=== PATIENT | male | born 1950 | race Caucasian/White ===

== ENCOUNTER → 2017-10-19 11:56 | Outpatient (REF) | payer MEDICARE, BC, SELFPAY ==
[2017-10-19 19:28] LABS: ALT 43 U/L (12-78); Anion Gap 9.6 mmol/L (3-11); BUN 25 mg/dL (7-18); CO2 28.4 mmol/L (21.0-32.0); CREATININE 1.02 mg/dL (0.70-1.30); Calcium 8.9 mg/dL (8.5-10.1); Chloride 102 mmol/L (98-107); Glucose 87 mg/dL (70-100); LDL CHOLESTEROL 138 mg/dL (<100); Magnesium 1.9 mg/dL (1.8-2.4); Potassium 4.1 mmol/L (3.5-5.1); Sodium 140 mmol/L (136-145)
== END ==
LOC: NCHCN 11:56
PROVIDERS: PCP Internal Medicine; Visit Provider Internal Medicine
DX: I10 Essential (primary) hypertension (principal); G51.0 Bell's palsy; M21.611 Bunion of right foot; M20.40 Other hammer toe(s) (acquired), unspecified foot; R25.2 Cramp and spasm
CPT/HCPCS: 80048; 83721; 83735; 84460

== ENCOUNTER 2019-02-20 14:18 | Outpatient (REF) | payer MEDICARE, BC, SELFPAY ==
[2019-02-20 18:36] LABS: Anion Gap 10.2 mmol/L (3-11); BUN 25 mg/dL (7-18); CO2 30.8 mmol/L (21.0-32.0); CREATININE 1.15 mg/dL (0.70-1.30); Calcium 9.1 mg/dL (8.5-10.1); Chloride 103 mmol/L (98-107); Glucose 90 mg/dL (74-106); Magnesium 1.9 mg/dL (1.8-2.4); Potassium 3.7 mmol/L (3.5-5.1); Sodium 144 mmol/L (136-145)
== END 2019-02-20 14:38 ==
LOC: NCHCN 14:18
PROVIDERS: PCP Internal Medicine; Visit Provider Internal Medicine
DX: I10 Essential (primary) hypertension (principal); R25.2 Cramp and spasm; Z90.49 Acquired absence of other specified parts of digestive tract
CPT/HCPCS: 80048; 83735

== ENCOUNTER 2020-05-19 15:37 | Outpatient (REF) | payer MEDICARE, BC, SELFPAY ==
[2020-05-19 21:52] LABS: BUN 29 mg/dL (7-18); Chloride 105 mmol/L (98-107); Glucose 98 mg/dL (74-106); Sodium 141 mmol/L (136-145); Vitamin B12 859 pg/mL (193-986)
== END 2020-05-19 15:38 | disposition home or self-care (01) ==
LOC: NCHCN 15:37
PROVIDERS: PCP Internal Medicine; Visit Provider Internal Medicine
DX: I10 Essential (primary) hypertension (principal); G25.2 Other specified forms of tremor
CPT/HCPCS: 80048; 82607; 84443; 85025

== ENCOUNTER 2020-05-20 18:52 | Outpatient (REF) | payer MEDICARE, BC, SELFPAY ==
[2020-05-20 19:29] LABS: Abs Immature Grans 0.04 10^3/uL (0.0-0.06); Absolute Basophil Count 0.05 10^3/uL (0.0-0.2); Absolute Eosinophil Count 0.24 10^3/uL (0.0-0.7); Absolute Lymphocyte Count 1.11 10^3/uL (1.2-3.4); Absolute Monocyte Count 0.55 10^3/uL (0.1-0.8); Absolute Neutrophil Count 5.47 10^3/uL (1.2-6.7); Basophils % 0.7; Eosinophils % 3.2; HCT 46.4 % (40.0-50.0); HGB 15.3 g/dL (13.5-17.5); Immature Grans % 0.5; Lymphocytes % 14.9; MCH 28.7 pg (27.0-33.0); MCV 86.9 fL (80-95); MPV 11.9 fL (8.0-11.0); Monocytes % 7.4; Neutrophils % 73.3; Nucleated RBC 0 %; Platelet Count 216 10^3/uL (130-400); RBC 5.34 10^6/uL (4.36-5.78); RDW-SD 45.2 fL; WBC 7.46 10^3/uL (4.4-10.8)
== END 2020-05-20 18:53 | disposition home or self-care (01) ==
LOC: NCHCN 18:52
PROVIDERS: PCP Internal Medicine; Visit Provider Internal Medicine
DX: I10 Essential (primary) hypertension (principal); G25.2 Other specified forms of tremor
CPT/HCPCS: 85025

== ENCOUNTER 2020-11-02 14:46 | Outpatient (REF) | payer MEDICARE, BC, SELFPAY ==
[2020-11-04 17:18] LABS: COVID-19 RT-PCR UVMMC Result Negative (Negative)
== END 2020-11-02 14:47 | disposition home or self-care (01) ==
LOC: NCHCN 14:46
PROVIDERS: PCP Internal Medicine; Visit Provider Internal Medicine
DX: Z20.822 Contact with and (suspected) exposure to COVID-19 (principal)
CPT/HCPCS: U0003

== ENCOUNTER 2021-07-08 18:33 | Outpatient (REF) | payer MEDICARE, BC, SELFPAY ==
[2021-07-08 18:48] LABS: HCT 42.9 % (40.0-50.0); HGB 14.1 g/dL (13.5-17.5); MCH 27.9 pg (27.0-33.0); MCHC 32.9 % (32.0-36.0); MCV 85 fL (80-95); MPV 10.9 fL (8.0-11.0); Platelet Count 198 10^3/uL (130-400); RBC 5.05 10^6/uL (4.36-5.78); RDW 14.6 % (11.8-14.1); RDW-SD 44.9 fL; WBC 6.37 10^3/uL (4.4-10.8)
[2021-07-08 18:49] LABS: ESR 14 mm/hr (0-20)
[2021-07-08 19:54] LABS: ALT 23 U/L (16-63); AST 18 U/L (15-37); Alkaline Phosphatase 85 U/L (46-116); Anion Gap 8.2 mmol/L (3-11); BUN 25 mg/dL (7-18); Bilirubin, Total 0.8 mg/dL (0.2-1.0); CO2 28.8 mmol/L (21.0-32.0); CREATININE 1.1 mg/dL (0.70-1.30); Calcium 8.8 mg/dL (8.5-10.1); Chloride 101 mmol/L (98-107); Glucose 104 mg/dL (74-106); Potassium 3.5 mmol/L (3.5-5.1); Sodium 138 mmol/L (136-145); TSH 0.64 uIU/mL (0.36-3.74); Vitamin B12 651 pg/mL (193-986)
[2021-07-08 20:07] LABS: C-Reactive Protein 0.28 mg/dL (0.0-0.3)
== END 2021-07-08 18:34 | disposition home or self-care (01) ==
LOC: NCHCN 18:33
PROVIDERS: PCP Internal Medicine; Visit Provider Internal Medicine
DX: I10 Essential (primary) hypertension (principal); R41.89 Other symptoms and signs involving cognitive functions and awareness
CPT/HCPCS: 80053; 85027; 85652; 82607; 84443; 86140

== ENCOUNTER 2022-03-27 14:48 | Outpatient (REF) | payer MEDICARE, BC, SELFPAY ==
[2022-03-27 20:02] LABS: Anion Gap 9.5 mmol/L (3-11); BUN 28 mg/dL (7-18); CO2 27.5 mmol/L (21.0-32.0); CREATININE 1.1 mg/dL (0.70-1.30); Calcium 9.7 mg/dL (8.5-10.1); Calculated LDL 138 mg/dL (<100); Chloride 102 mmol/L (98-107); Cholesterol 208 mg/dL (<200); Estimated GFR 71.32 (mL/min/1.73m2); Glucose 110 mg/dL (74-106); HDL Cholesterol 55 mg/dL (40-60); Potassium 3.6 mmol/L (3.5-5.1); Sodium 139 mmol/L (136-145); Triglyceride 75 mg/dL (<150)
== END 2022-03-27 14:49 | disposition home or self-care (01) ==
LOC: NCHCN 14:48
PROVIDERS: PCP Internal Medicine; Visit Provider Internal Medicine
DX: I10 Essential (primary) hypertension (principal); R41.89 Other symptoms and signs involving cognitive functions and awareness
CPT/HCPCS: 80048; 80061

== ENCOUNTER 2023-04-25 13:45 | Outpatient (REF) | payer MEDICARE, BC, SELFPAY ==
[2023-04-25 20:29] LABS: Calculated LDL 146 mg/dL (<100); Cholesterol 219 mg/dL (<200); HDL Cholesterol 54 mg/dL (40-60); Triglyceride 95 mg/dL (<150)
== END 2023-04-25 13:46 | disposition home or self-care (01) ==
LOC: NCHCN 13:45
PROVIDERS: PCP Internal Medicine; Visit Provider Internal Medicine
DX: Z00.00 Encounter for general adult medical examination without abnormal findings (principal)
CPT/HCPCS: 80061

== ENCOUNTER 2024-01-09 13:14 | Outpatient (REF) | payer MEDICARE, BC, SELFPAY ==
--- OUTSIDE RECORDS SUMMARY | 2024-01-09 13:18 | XMS_ITS | Clinical Summary ---
Author Organization [facility] Address [address] [place] [address] Care Team Providers Care Winding Rack Operator Name Role Phone Delmar Diaz MD Primary Care Provider [phone] Allergies Active Allergy Reactions Criticality Noted Date Comments Lorazepam Shortness Of Breath 04/17/2016 Medications ALBUTEROL SULFATE (PROVENTIL INHL) Inhale as directed every 4 hours as needed. Active triamterene-hyd rochlorothiazid e (MAXZIDE) 37.5-25 mg per tablet Take 1 Tab by mouth daily. Active FLAXSEED OIL ORAL Take 1 Tab by mouth daily. Reported on 04/17/2016 Active acetaminophen (TYLENOL) 325 mg tablet Take 325 mg by mouth every 4 hours as needed. Active calcium carbonate (TUMS) 200 mg calcium (500 mg) Chew Take 1 Tab by mouth 4 times daily as needed. Active Phqz-Spcw-CKG#1 -V-Ahnj-Lbu-Bor (OSTEO BI-FLEX) 750-625-30 mg Tab Take by mouth daily. Reported on 04/17/2016 Active UNABLE TO FIND daily. Reported on 04/17/2016 Active omega-3 fatty acids (FISH OIL CONCENTRATE) 1,000 mg cap capsule Take 1,000 mg by mouth daily. Reported on 04/17/2016 Active KRILL OIL ORAL Take by mouth daily. Reported on 04/17/2016 Active aspirin chewable 81 mg tablet Take 81 mg by mouth every 48 hours. Reported on 04/17/2016 Active valACYclovir (VALTREX) 1 gram tablet Take 1,000 mg by mouth 2 times daily. Active GABAPENTIN ORAL Take 200 mg by mouth daily. Active losartan (COZAAR) 50 mg tablet Take 50 mg by mouth daily. Active gabapentin (NEURONTIN) 300 mg capsule Take 300 mg by mouth at bedtime. Active polyethylene glycol (GOLYTELY) 236-22.74-6.74 -5.86 gram suspension Patient to follow one time directions sent from Dr Rodríguez office. 1 Each 2 Active Additional Information Patient not taking.Reported on 06/15/2021 cephalexin (KEFLEX) 250 mg/5 mL suspension Take 2,000 mg by mouth as needed (before dental appt). Active Active Problems Patient Care Coordination No te Formatting of this note migh t be different from the original. Patient has given verbal permission to [facility] to speak with his spouse Anna Acevedo and son Quirino Acevedo on pt's behalf for medical care. Hongchamp Mcclellan 06/10/2021 18:29 Problem Noted Date Diagnosed Date Malignant tumor of colon (HCC-CMS) Colon polyp Allergic rhinitis Surgical History Surgery Date Site/Laterality Comments COLON SURGERY 09/21/2010 2010 Repair of colon perforation COLECTOMY 11/18/2009 11/29/09 Left Hemicolectomy KNEE SURGERY Left TONSILLECTOMY JOINT REPLACEMENT JOINT REPLACEMENT bilateral knees Medical History Medical History Date Comments Colon polyp Colon cancer (HCC-CMS) 2006 Allergic rhinitis Spasm of bronchus 12/07/10 Hypertension Lung disease Asthma Shallow breathing Shingles shingles on the brain 6 yrs ago Family History Medical History Relation Comments Colon Cancer Mother Breast Cancer Neg Hx Colon Polyps Neg Hx Endometrial Cancer Neg Hx Esophageal Cancer Neg Hx Ovarian Cancer Neg Hx Pancreatic Cancer Neg Hx Rectal Cancer Neg Hx Stomach Cancer Neg Hx Relation Status Comments Brother 1 Brother 2 Alive Father Mother Sister 1 Alive Sister 2 Alive Son Alive Social History Tobacco Use Types Packs/Day Years Used Date Smoking Tobacco: Never Smokeless Tobacco: Never Alcohol Use Standard Drinks/Week Comments No 0 (1 standard drink = 0.6 oz pur e alcohol) Interpersonal Safety Answer Date Record ed Physically Hurt Never 09/28/2019 Verbally Threaten Not on file 09/28/2019 Sex and Gender Information Value Date Recorded Sex Assigned at Not on file Legal Sex Male 18:16 EST Gender Identity Not on file Sexual Orientation Not on file Obstetrics History Last Filed Vital Signs Vital Sign Reading Time Taken Comments Blood Pressure 126/76 06/15/2021 1110 EDT Pulse 92 12/19/2013 1306 EDT Temperature 36.9 ??C (98.4 ??F) 06/15/2021 1108 EDT Respiratory Rate 13 06/15/2021 1110 EDT Oxygen Saturation 94% 06/15/2021 1110 EDT Inhaled Oxygen Concentration - - Weight 74.4 kg (164 lb) 06/15/2021 1004 EDT Height 177.8 cm (5' 10) 06/15/2021 1004 EDT Body Mass Index 23.53 06/15/2021 1004 EDT Plan of Treatment Health Maintenance Due Date Last Done Comments Hepatitis C Screen 1950 Fall Risk Screening 04/30/2018 04/30/2017 COVID-19 Vaccine ( - 2023-25 season) 2023 RSV Immunization ( o r 60+ Years) (1 - 1-dose 75+ series) 2024 Colonoscopy (Colon Cancer Screening) 06/15/202605/28, 04/03/2018 Procedures Procedure Name Priority Date/Time Associated Diagnosis Comments COLONOSCOPY PROCEDURE Routine 06/15/2021 10:50 EDT from Last 3 Months or Most Recently Relevant to Health Maintenance Results * COLONOSCOPY PROCEDURE (06/15/2021 10:50 EDT) Anatomical Region Laterality Modality Endoscopy Narrative 06/15/2021 10:50 EDT Procedure Performed Colonoscopy - cold biopsy polypectomy x 2 Indications for Exam Surveillance, ?? History of colon cancer. Procedure Technique A physical exam was performed. Informed consent was obtained from the patient after explaining all the risks (perforation, bleeding, missed findings, injury to nearby organs, infection and adverse effects to the medicine), benefits and alternatives to the procedure which the patient appeared to understand and so stated. ??The patient was connected to the monitoring devices and placed in the left lateral position. Continuous oxygen was provided with a nasal cannula and IV medicine administered thru an indwelling cannula. After adequate sedation was achieved, a digital exam was performed and the colonoscope introduced into the rectum and advanced under direct visualization to the cecum. The cecum was identified by visual landmarks. The endoscope was subsequently removed slowly while carefully examining the color, texture, anatomy, and integrity of the mucosa on withdrawal. Retroflexion was performed in the rectum: Yes. The patient was subsequently transferred to the recovery area in satisfactory condition. Rectal Exam:normal Estimated Blood Loss: None Complications None Medications none none Wiggins Bowel Prep Right Colon: 3 ? Transverse Colon: 3 ? Left Colon: 2 ?Total: 8 Findings 2 3-4 mm distal rectal polyps. ??cold bx polypectomy x 2 Diagnosis 2 3-4 mm distal rectal polyps. ??cold bx polypectomy x 2 Recommendations Follow biopsy results. Repeat colonoscopy in 5 years. This electronic signature authenticates all electronic and/or handwritten documentation, including orders, generated by the signer during the episode of care contained in this record. 06/15/2021 10:50:31 AM By Segun Rodríguez Segun Rodríguez MD GI PROCEDURE ORDERABLES Final Result from Last 3 Months or Most Recently Relevant to Health Maintenance Insurance [facility] [place] [id number] Care Teams Winding Rack Operator Relationship Specialty Start Date End Date Delmar Diaz MD [address] [place] [address] PCP - General 08/14/11
--- OUTSIDE RECORDS SUMMARY | 2024-01-09 13:18 | XMS_ITS | Encounter Summary ---
Author Organization [facility] Address [address] [place] [address] Care Team Providers Care Loan Funder Name Role Phone Delmar Diaz MD Primary Care Provider [phone] Encounter Details Date Type Department Care Team (Late st Contact Info) Description 01/23/2018 Orders Only [facility] General Surgery - [facility] [address] [place] [address] Daja Oviedo, [place] Social History Tobacco Use Types Packs/Day Years Used Date Smoking Tobacco: Never Smokeless Tobacco: Never Alcohol Use Standard Drinks/Week Comments No 0 (1 standard drink = 0.6 oz pur e alcohol) Sex and Gender Information Value Date Recorded Sex Assigned at Not on file Legal Sex Male 18:16 EST Gender Identity Not on file Sexual Orientation Not on file documented as of this encounter Functional Status * Because of a physical, mental, or emotional condition, does this person have difficulty doing errands alone such as visiting a doctor's office or shopping? Answer Date of Assessment Author No 04/30/2017 14:38 EST documented as of this encounter Mental Status * Because of a physical, mental, or emotional condition, does this person have serious difficulty concentrating, remembering, or making decisions? Answer Entry Date Author No 04/30/2017 14:38 EST documented in this encounter Ordered Prescriptions Prescription Sig Dispense Quantity Refills Last Filled Start Date End Date polyethylene glycol (GOLYTELY) 236-22.74-6.74 -5.86 gram suspension Take as directed prior to procedure 1 Bottle 01/23/2018 2 documented in this encounter Plan of Treatment Not on file documented as of this encounter Visit Diagnoses Not on filedocumented in this encounter Discontinued Medications Medication Sig Discontinue Reason Start Date End Da te polyethylene glycol (GOLYTELY) 236-22.74-6.74 -5.86 gram suspension Patient to follow directions given by Dr. Rodríguez's office 01/15/2015 01/23/2018 documented as of this encounter Care Teams Loan Funder Relationship Specialty Start Date End Date Delmar Diaz MD [address] [place] [address] PCP - General 08/14/11 documented as of this encounter
--- OUTSIDE RECORDS SUMMARY | 2024-01-09 13:18 | XMS_ITS | Encounter Summary ---
Author Organization [facility] Address [address] [place] [address] Care Team Providers Care Interface Analyst Name Role Phone Delmar Diaz MD Primary Care Provider [phone] Reason for Visit * Reason Onset Date Comments Colonoscopy 10/16/2014 Received letter. Wants to schedule colonoscopy but ? if his medicare would cover it. Encounter Details Date Type Department Care Team (Late st Contact Info) Description 10/16/2014 Telephone [facility] General Surgery - [facility] [address] [place] [address] Segun Tyler MD [address] [facility], [address] [place] [address] Colonoscopy (Received letter. Wants to schedule colonoscopy but ? if his medicare would cover it.) Social History Tobacco Use Types Packs/Day Years Used Date Smoking Tobacco: Never Alcohol Use Standard Drinks/Week Comments No 0 (1 standard drink = 0.6 oz pur e alcohol) Sex and Gender Information Value Date Recorded Sex Assigned at Not on file Legal Sex Male 18:16 EST Gender Identity Not on file Sexual Orientation Not on file documented as of this encounter Miscellaneous Notes * Telephone Encounter - Margret Mohan - 10/20/2014 0910 EDT Patient given colonoscopy appointment with: Dr. TYLER Date and Time: 01.27.15 @ 10:00 AM Arrival Time @ 3rd Floor Registration: 9:00 AM Informational Packet Given/Mailed 10.20.14 Pharmacy information confirmed and emailed to Nurse 10.20.14 documented in this encounter Plan of Treatment Not on file documented as of this encounter Visit Diagnoses Not on filedocumented in this encounter Care Teams Interface Analyst Relationship Specialty Start Date End Date Delmar Diaz MD [address] [place] [address] PCP - General 08/14/11 documented as of this encounter
--- OUTSIDE RECORDS SUMMARY | 2024-01-09 13:18 | XMS_ITS | Encounter Summary ---
Author Organization [facility] Address [address] [place] [address] Care Team Providers Care Supplier Quality Engineer Name Role Phone Delmar Diaz MD Primary Care Provider [phone] Reason for Visit * Reason Onset Date Comments Other 05/16/2021 Encounter Details Date Type Department Care Team (Late st Contact Info) Description 05/16/2021 Telephone [facility] General Surgery - [facility] [address] [place] [address] Segun Rodríguez MD [address] [place] [address], [address] [place] [address] Other Social History Tobacco Use Types Packs/Day Years [...] 04/30/2017 14:38 EST documented in this encounter Miscellaneous Notes * Telephone Encounter - Anders Crocker - 05/25/2021 1339 EDT Patient calling back as he has not heard yet from Angelina. Please call * Telephone Encounter - Anders Crocker - 05/16/2021 1456 EDT Patient Calling for Angelina, he would like a call back to discuss a Colonoscopy documented in this encounter Plan of Treatment Not on file documented as of this encounter Visit Diagnoses Not on filedocumented in this encounter Care Teams Supplier Quality Engineer Relationship Specialty Start Date End Date Delmar Diaz MD [address] [place] [address] PCP - General 08/14/11 documented as of this encounter
--- OUTSIDE RECORDS SUMMARY | 2024-01-09 13:18 | XMS_ITS | Encounter Summary ---
Author Organization [facility] Address [address] [place] [address] Care Team Providers Care Manager Financial Services Name Role Phone Delmar Diaz MD Primary Care Provider [phone] Reason for Visit * Reason Onset Date Comments Appointment Related 01/25/2015 Encounter Details Date Type Department Care Team (Late st Contact Info) Description 01/25/2015 Telephone [facility] General Surgery - [address] [address] Segun Rodríguez MD [address] [facility], [address] [place] [address] Appointment Related Social History Tobacco Use Types Packs/Day Years [...] encounter Miscellaneous Notes * Telephone Encounter - Esther Soto - 01/25/2015 1320 EST Called Wang Acevedo To remind them of their colonoscopy appointment with: on 01/27/2015 @ 10:00am. Please check in with the 3rd. Floor registration desk located at the [facility] @ 09:00am ( One hour prior to your exam) To ensure a successful exam, patient was reminded to: tree trimming supervisor you bowel prep- Per pt- He will be using the miralax prep Are you on Coumadin or Plavix (Asprin is ok- Patient must contact the prescribing MD to notify them and schedule a bridge) You must start your Clear Liquid Diet the day before your scheduled procedure for Breakfast, lunch and dinner. Nothing to eat or drink 2 hours before the procedure You Must have a ride to and from the Procedure. documented in this encounter Plan of Treatment Not on file documented as of this encounter Visit Diagnoses Not on filedocumented in this encounter Care Teams Manager Financial Services Relationship Specialty Start Date End Date Delmar Diaz MD [address] [place] [address] PCP - General 08/14/11 documented as of this encounter
--- OUTSIDE RECORDS SUMMARY | 2024-01-09 13:18 | XMS_ITS | Encounter Summary ---
Author Organization [facility] Address [address] [place] [address] Care Team Providers Care Gas Pump Attendant Name Role Phone Delmar Diaz MD Primary Care Provider [phone] Encounter Details Date Type Department Care Team (Late st Contact Info) Description 01/27/2015 9:00 EST - 01/27/2015 11:26 EST Hospital Encounter [facility] Endoscopy Outpatient [address] [place] [address] Segun Rodríguez MD [address] [facility], [facility] [address] [place] [address] Malignant neoplasm of colon, unspecified part of colon ([facility]-HCC) Discharge Disposition: Home or Self Care Social History Tobacco Use Types Packs/Day Years [...] on file documented as of this encounter Last Filed Vital Signs Vital Sign Reading Time Taken Comments Blood Pressure 127/92 01/27/2015 1059 EST Pulse - - Temperature 34.8 ??C (94.6 ??F) 01/27/2015 1048 EST Respiratory Rate 16 01/27/2015 1059 EST Oxygen Saturation 92% 01/27/2015 1059 EST Inhaled Oxygen Concentration - - Weight 81.2 kg (179 lb) 01/27/2015 0934 EST Height 177.8 cm (5' 10) 01/27/2015 0934 EST Body Mass Index 25.68 01/27/2015 0934 EST documented in this encounter Medications at Time of Discharge acetaminophen (TYLENOL) 325 mg tablet Take 325 mg by mouth every 4 hours as needed. ALBUTEROL SULFATE (PROVENTIL INHL) Inhale as directed every 4 hours as needed. aspirin chewable 81 mg tablet Take 81 mg by mouth every 48 hours. Reported on 04/17/2016 calcium carbonate (TUMS) 200 mg calcium (500 mg) Chew Take 1 Tab by mouth 4 times daily as needed. FLAXSEED OIL ORAL Take 1 Tab by mouth daily. Reported on 04/17/2016 Wmfx-Czia-NJI#1- W-Fbvt-Cjq-Bor (OSTEO BI-FLEX) 750-625-30 mg Tab Take by mouth daily. Reported on 04/17/2016 KRILL OIL ORAL Take by mouth daily. Reported on 04/17/2016 omega-3 fatty acids (FISH OIL CONCENTRATE) 1,000 mg cap capsule Take 1,000 mg by mouth daily. Reported on 04/17/2016 triamterene-hydr ochlorothiazide (MAXZIDE) 37.5-25 mg per tablet Take 1 Tab by mouth daily. UNABLE TO FIND daily. Reported on 04/17/2016 polyethylene glycol (GOLYTELY) 236-22.74-6.74 -5.86 gram suspension Patient to follow directions given by Dr. Rodríguez's office 1 Bottle 0 01/15/2015 8 documented as of this encounter Discharge Disposition Disposition Code Departure Means Destination Home or Self Care documented in this encounter H&P Notes * Segun Rodríguez MD - 01/27/2015 0952 EST Endoscopy Sedation for Procedure History & Physical Date: 01/27/2015 Time: 9:52 Location: [address] Planned Procedure: Colonoscopy Chief Complaint/Indications for Procedure: hx Colon Cancer History Previous Complication with Sedation and/or Anesthesia? No Allergies: No Known Allergies Current Medications: Current Outpatient Prescriptions Medication Sig Dispense Refill ??? acetaminophen (TYLENOL) 325 mg tablet Take 325 mg by mouth every 4 hours as needed. ??? ALBUTEROL SULFATE (PROVENTIL INHL) Inhale as directed every 4 hours as needed. ??? aspirin chewable 81 mg tablet Take 81 mg by mouth every 48 hours. ??? calcium carbonate (TUMS) 200 mg calcium (500 mg) Chew Take 1 Tab by mouth 4 times daily as needed. ??? FLAXSEED OIL ORAL Take 1 Tab by mouth daily. ??? Zbdj-Utmu-CGF#2-Y-Ajse-Jorge A-Bor (OSTEO BI-FLEX) 750-625-30 mg Tab Take by mouth daily. ??? KRILL OIL ORAL Take by mouth daily. ??? omega-3 fatty acids (FISH OIL CONCENTRATE) 1,000 mg cap capsule Take 1,000 mg by mouth daily. [place] Red ??? polyethylene glycol (GOLYTELY) 236-22.74-6.74 -5.86 gram suspension Patient to follow directions given by Dr. Rodríguez's office 1 Bottle 0 ??? triamterene-hydrochlorothiazide (MAXZIDE) 37.5-25 mg per tablet Take 1 Tab by mouth daily. ??? UNABLE TO FIND daily. Bee Pollen Current Facility-Administered Medications Medication Route Frequency ??? lactated ringers (LR) infusion intravenous CONTINUOUS Past Medical History: Past Medical History Diagnosis Date ??? Colon polyp ??? Colon cancer 2005 ??? Allergic rhinitis ??? Spasm of bronchus 12/07/10 ??? Hypertension Social History: Past Surgical History Procedure Laterality Date ??? Colon surgery 09/21/2010 2010 Repair of colon perforation ??? Colectomy 11/18/2009 11/29/09 Left Hemicolectomy ??? Knee surgery Left ??? Tonsillectomy History Substance Use Topics ??? Smoking status: Never Smoker ??? Smokeless tobacco: Never Used ??? Alcohol Use: No Family History: Family History Problem Relation Age of Onset ??? Colon Cancer Mother 30 ??? Breast Cancer Neg Hx ??? Colon Polyps Neg Hx ??? Endometrial Cancer Neg Hx ??? Esophageal Cancer Neg Hx ??? Ovarian Cancer Neg Hx ??? Pancreatic Cancer Neg Hx ??? Rectal Cancer Neg Hx ??? Stomach Cancer Neg Hx Review of Systems as pertinent: Physical Exam Vital Signs: BP 141/88 mmHg Temp(Src) 35.4 ??C (95.7 ??F) (Tympanic) Resp 16 Ht 177.8 cm (70) Wt 81.194 kg (179 lb) BMI 25.68 kg/m2 SpO2 96% Heart Examination: Cardiac Regularity: Regular Respiratory Examination: Respiratory Pattern: Regular Breath Sounds Right: Clear Breath Sounds Left: Clear Abdominal Examination: Soft, non-tender, bowel sounds normal, no masses, no organomegaly Additional physical exam related to the proposed procedure, patient activity, disease state and treatment as pertinent: Assessment Previous complications with sedation or anesthesia?: No Airway Concerns: None Anesthesia Classification: ASA 2 Plan: Proceed with sedation for procedure Fasting Time: Time of last liquid intake: 06 Date of Last Liquid Intake: 01/27/15 Time of last solid intake: 1999 Date of last solid intake: 01/25/15 Patient Appropriate Candidate for Planned Sedation?: Yes Segun Rodríguez MD 01/27/2015 9:52 documented in this encounter Plan of Treatment Not on file documented as of this encounter Procedures Procedure Name Priority Date/Time Associated Diagnosis Comments PROCEDURE REPORTS - SCANNED 01/28/2015 0:37 EST CEA Routine 01/27/2015 9:22 EST Malignant neoplasm of colon, unspecified part of colon (CMS-HCC) documented in this encounter Results * PROCEDURE REPORTS - SCANNED (01/28/2015 0:37 EST) 01/28/2015 0:37 EST us Scan 2 Back End Engineer PROCEDURE/MINOR SURGICAL OR DERABLES Final Result * CEA (01/27/2015 9:22 EST) CEA 2.2 ng/ml 01/27/2015 11:32 EST [facility] Comment: % Distribution of CEA (ng/ml) 0-2.5 in 98.2% of non-smokers and 87.3% of smokers 2.6-5.0 in 1.8% of non-smokers and 8.0% of smokers 5.1-10.1 in 4.7% of smokers Serum CEA concentration should not be interpreted as absolute evidence for the presence or absence of malignant disease. Assayed utilizing [employer] chemiluminescent technology. ??Values obtained by using different assay methods cannot be used interchangeably. Blood specimen (specimen) BLOOD SPECIMEN / Unknown 01/27/2015 9:22 EST 01/27/2015 9:50 EST us Segun Rodríguez MD CHEMISTRY & BLOOD GAS ORDERAB LES Final Result [facility] [address] [place] [address] documented in this encounter Visit Diagnoses Diagnosis Malignant neoplasm of colon, unspecified part of colon (HCC-CMS) documented in this encounter Administered Medications Inactive Administered Medications - up to 3 most recent administrations Medication Order MAR Action Action Date Dose Rate Site lactated ringers (LR) infusion at 75 mL/hr, intravenous, CONTINUOUS, Starting on Sun01/27/15 at 1000, Until Sun01/27/15 at 1327, Routine New Bag 01/27/2015 9:41 EST 30 mL/hr meperidine (PF) (DEMEROL) 100 mg/mL injection 25-200 mg 25-200 mg, intravenous, ONCE PRN, 1 dose, Starting on Sun01/27/15 at 0956, Until Sun01/27/15 at 1018, Other, sedation, Routine, Intraprocedure Given 01/27/2015 10:18 EST 75 mg midazolam (PF) (VERSED) 1 mg/mL injection 1-10 mg 1-10 mg, intravenous, ONCE PRN, 1 dose, Starting on Sun01/27/15 at 0956, Until Sun01/27/15 at 1019, Sedation, Routine, Intraprocedure Given 01/27/2015 10:19 EST 3 mg documented in this encounter Orders Medications Ordered That Cassius ht Not Have Been Administered Count Last Ordered Date First Ordered Date lactated ringers (LR) infusion 1 01/27/2015 Transfer Count Last Ordered Date First Orde red Date NOTIFY PPS OF DISCHARGE COMPLETE 1 01/28/20 15 documented in this encounter Care Teams Gas Pump Attendant Relationship Specialty Start Date End Date Delmar Diaz MD [address] [place] [id number] PCP - General 08/14/11 documented as of this encounter
--- OUTSIDE RECORDS SUMMARY | 2024-01-09 13:18 | XMS_ITS | Encounter Summary ---
Author Organization [facility] Address [address] [place] [address] Care Team Providers Care Textbook Associate Name Role Phone Delmar Diaz MD Primary Care Provider [phone] Encounter Details Date Type Department Care Team (Late st Contact Info) Description 04/17/2016 Phlebotomy Only [facility] [place] [address] [place] [address] Noc Engineer, Outpatient History of colon cancer; Malignant neoplasm of sigmoid colon (HCC-CMS) Social History Tobacco Use Types Packs/Day Years [...] on file documented as of this encounter Plan of Treatment Not on file documented as of this encounter Procedures Procedure Name Priority Date/Time Associated Diagnosis Comments CEA Routine 04/17/2016 16:28 EST History of colon cancer documented in this encounter Results * CEA (04/17/2016 16:28 EST) CEA 2.0 ng/ml 04/18/2016 11:37 EST [facility] Comment: % Distribution of CEA (ng/ml) 0-2.5 in 98.2% of non-smokers and 87.3% of smokers 2.6-5.0 in 1.8% of non-smokers and 8.0% of smokers 5.1-10.1 in 4.7% of smokers Serum CEA concentration should not be interpreted as absolute evidence for the presence or absence of malignant disease. Assayed utilizing [employer] ([employer]) chemiluminescent technology. ??Values obtained by using different assay methods cannot be used interchangeably. Blood specimen (specimen) BLOOD SPECIMEN / Unknown 04/17/2016 16:28 EST 04/17/2016 16:48 EST us Segun Rodríguez MD CHEMISTRY & BLOOD GAS ORDERAB LES Final Result [facility] [address] [place] [address] documented in this encounter Visit Diagnoses Diagnosis History of colon cancer Personal history of malignant neoplasm of large intestine Malignant neoplasm of sigmoid colon (HCC-CMS) Malignant neoplasm of sigmoid colon documented in this encounter Care Teams Textbook Associate Relationship Specialty Start Date End Date Delmar Diaz MD [address] [place] [address] PCP - General 08/14/11 documented as of this encounter
--- OUTSIDE RECORDS SUMMARY | 2024-01-09 13:18 | XMS_ITS | Encounter Summary ---
Author Organization [facility] Address [address] [place] [address] Care Team Providers Care Interior Design Coordinator Name Role Phone Delmar Diaz MD Primary Care Provider [phone] Encounter Details Date Type Department Care Team (Late st Contact Info) Description 10/21/2015 Orders Only [facility] General Surgery - [facility] [address] [place], [place] [id number] Segun Rodríguez MD [address] [facility], [address] [place] [address] History of colon cancer (Primary Dx) Social History Tobacco Use Types Packs/Day Years [...] on file documented as of this encounter Results * CEA (04/17/2016 16:28 EST) CEA 2.0 ng/ml 04/18/2016 11:37 EST [facility] Comment: % Distribution of CEA (ng/ml) 0-2.5 in 98.2% of non-smokers and 87.3% of smokers 2.6-5.0 in 1.8% of non-smokers and 8.0% of smokers 5.1-10.1 in 4.7% of smokers Serum CEA concentration should not be interpreted as absolute evidence for the presence or absence of malignant disease. Assayed utilizing [employer] ([employer] chemiluminescent technology. ??Values obtained by using different assay methods cannot be used interchangeably. Blood specimen (specimen) BLOOD SPECIMEN / Unknown 04/17/2016 16:28 EST 04/17/2016 16:48 EST us Segun Rodríguez MD CHEMISTRY & BLOOD GAS ORDERAB LES Final Result [facility] [address] [place] [address] documented in this encounter Visit Diagnoses Diagnosis History of colon cancer- Primary Personal history of malignant neoplasm of large intestine documented in this encounter Care Teams Interior Design Coordinator Relationship Specialty Start Date End Date Delmar Diaz MD [address] [place] [address] PCP - General 08/14/11 documented as of this encounter
--- OUTSIDE RECORDS SUMMARY | 2024-01-09 13:18 | XMS_ITS | Encounter Summary ---
Author Organization [facility] Address [address] [place] [address] Care Team Providers Care Manager Of Sustainability Name Role Phone Delmar Diaz MD Primary Care Provider [phone] Reason for Visit * Reason Comments Colon Cancer Encounter Details Date Type Department Care Team (Late st Contact Info) Description 12/11/2012 14:30 EDT Office Visit [facility] General Surgery - [facility] [address] [place], [place] [address] Pal Dennis MD [address] [place] [address] Colon cancer (CMS-HCC) (HCC-CMS) (Primary Dx) Social History Tobacco Use Types Packs/Day Years Used Date Smoking Tobacco: Never Alcohol Use Standard Drinks/Week Comments No 0 (1 standard drink = 0.6 oz pur e alcohol) Sex and Gender Information Value Date Recorded Sex Assigned at Not on file Legal Sex Male 18:16 EST Gender Identity Not on file Sexual Orientation Not on file documented as of this encounter Progress Notes * Pal Dennis - 12/12/2012 0621 EDT DIVISION OF GENERAL SURGERY PROGRESS / FOLLOWUP NOTE - 12/11/2012 PROBLEM: History of colon cancer, history of ventral hernia. SUBJECTIVE: Mr Acevedo is now 3 years after his colectomy. He is doing very well. His appetite is good. He has had no abdominal pain, bleeding or change in bowel habits. He had a colonoscopy last December and we went over the results. MEDICAL HISTORY: Generally unremarkable. He and his had appropriate questions about the ventral hernia, which they really would like to manage expectantly. He has had no pain or obstructive symptoms. OBJECTIVE: He looks well. The sclerae are nonicteric. Heart exam reveals a regular rate and rhythm.The abdomen is benign with a large, readily reducible ventral hernia. The skin is completely intact. His serial CEAs were reviewed. ASSESSMENT: 1. Asymptomatic ventral hernia. I completely agree with expectant management. We had a jewel discussion about the nature of repair and outcomes. 2. Three years out without evidence of recurrence. PLAN: 1. We will check a CEA. If this is okay he would not need to necessarily see me for another year inthe absence of new symptoms. 2. We will continue expectant management of the ventral hernia. Pal Dennis MD, FACS 02 35 PM - Pal Dennis MD, FACS cn Dictation ID: [id number] * Pal Dennis - 12/11/2012 1429 EDT This office note has been dictated documented in this encounter Plan of Treatment Not on file documented as of this encounter Results * CEA (12/11/2012 14:43 EDT) CEA 2.2 ng/ml [facility] Comment: % Distribution of CEA (ng/ml) 0-2.5 in 98.2% of non-smokers and 87.3% of smokers 2.6-5.0 in 1.8% of non-smokers and 8.0% of smokers 5.1-10.1 in 4.7% of smokers Serum CEA concentration should not be interpreted as absolute evidence for the presence or absence of malignant disease. Assayed utilizing [employer] ([employer]) chemiluminescent technology. ??Values obtained by using different assay methods cannot be used interchangeably. Blood specimen (specimen) 12/11/2012 14:43 EDT 12/11/2012 14:57 EDT Pal Dennis MD CHEMISTRY & BLOOD GAS ORDERABLES Final Result [facility] [address] [place] [address] documented in this encounter Visit Diagnoses Diagnosis Colon cancer (HCC-CMS)- Primary Malignant neoplasm of colon, unspecified site documented in this encounter Care Teams Manager Of Sustainability Relationship Specialty Start Date End Date Delmar Diaz MD [address] [place] [address] PCP - General 08/14/11 documented as of this encounter
--- OUTSIDE RECORDS SUMMARY | 2024-01-09 13:18 | XMS_ITS | Encounter Summary ---
Author Organization [facility] Address [address] [place] [address] Care Team Providers Care Crosscutter Rolled Glass Name Role Phone Delmar Diaz MD Primary Care Provider Reason for Visit * Reason Onset Date Comments Results 04/12/2017 Returning Call 04/12/2017 Encounter Details Date Type Department Care Team (Late st Contact Info) Description 04/12/2017 Telephone [facility] General Surgery - [facility] [address] [place], [place] [id number] Segun Rodríguez MD [address] [facility], [address] [place] [address] Results; Returning Call Social History Tobacco Use Types Packs/Day Years [...] encounter Miscellaneous Notes * Telephone Encounter - Alva Deluna RN - 04/12/2017 3356 EST Read Wang's last CEA to him. Confirmed that he needed another one drawn for his upcoming appointment. Order placed and signed. * Telephone Encounter - AlberAngela - 04/12/2017 1433 EST Returning call * Telephone Encounter - AlberAngela Juliet - 04/12/2017 1412 EST Had CEA last time here- asking for results, and if he needs another one again. documented in this encounter Plan of Treatment Not on file documented as of this encounter Results * CEA (04/30/2017 13:58 EST) CEA 2.0 ng/ml 05/01/2017 10:10 EST [facility] Comment: % Distribution of CEA (ng/ml) 0-2.5 in 98.2% of non-smokers and 87.3% of smokers 2.6-5.0 in 1.8% of non-smokers and 8.0% of smokers 5.1-10.1 in 4.7% of smokers Serum CEA concentration should not be interpreted as absolute evidence for the presence or absence of malignant disease. Assayed utilizing [employer] ([employer]) chemiluminescent technology. ??Values obtained by using different assay methods cannot be used interchangeably. Blood specimen (specimen) BLOOD SPECIMEN / Unknown 04/30/2017 13:58 EST 04/30/2017 14:37 EST us Segun Rodríguez MD CHEMISTRY & BLOOD GAS ORDERAB LES Final Result [facility] [address] [place] [address] documented in this encounter Visit Diagnoses Diagnosis Malignant neoplasm of colon, unspecified part of colon (HCC-CMS)- Primary documented in this encounter Care Teams Crosscutter Rolled Glass Relationship Specialty Start Date End Date Delmar Diaz MD [address] [place] [address] PCP - General 08/14/11 documented as of this encounter
--- OUTSIDE RECORDS SUMMARY | 2024-01-09 13:18 | XMS_ITS | Encounter Summary ---
Author Organization [facility] Address [address] [place] [address] Care Team Providers Care Sales Promoter Name Role Phone Delmar Diaz MD Primary Care Provider [phone] Reason for Visit * Reason Comments Follow-up 1 yr f/u colon ca Encounter Details Date Type Department Care Team (Late st Contact Info) Description 04/30/2017 14:45 EST Office Visit [facility] General Surgery - [facility] [address] [place], [place] [phone] Segun Rodríguez MD [address] [facility], [address] [place] [address] Malignant neoplasm of sigmoid colon (HCC-CMS) (Primary Dx) Discharge Disposition: Auto Discharge Social History Tobacco Use Types Packs/Day Years [...] 04/30/2017 14:38 EST documented in this encounter Discharge Diagnoses Diagnosis C18.7 Malignant neoplasm of sigmoid colon-C18.7[ICD-10-CM] documented in this encounter Discharge Disposition Disposition Code Departure Means Destination Auto Discharge documented in this encounter Progress Notes * Segun Rodríguez MD - 04/30/2017 1445 EST This office note has been dictated. 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 His surgery was in 2011. Apparently, it was complicatedby an anastomotic leak and a cutaneous fistula, which healed on its own. The patient has been without any evidence of disease since 2011. He has not been followed with CAT scans. He currently has good function and an asymptomatic ventral hernia. 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 PHYSICAL EXAMINATION: Constitutional examination is normal except for left facial droop. HEENT examis unremarkable. Abdomen is benign except for very large ventral hernia, no masses. No signs of anycutaneous fistula. IMPRESSION: Doing well, no signs of recurrence. Carcinoembryonic antigen drawn today. RECOMMENDATION: Colonoscopy 1 year. Segun Rodríguez MD, FACS 03 01 PM - Segun Rodríguez MD, FACS en Dictation ID: [id number] cc: Delmar Diaz MD, [facility] [address], [place] [address] documented in this encounter Plan of Treatment Not on file documented as of this encounter Visit Diagnoses Diagnosis Malignant neoplasm of sigmoid colon (HCC-CMS)- Primary Malignant neoplasm of sigmoid colon documented in this encounter Care Teams Sales Promoter Relationship Specialty Start Date End Date Delmar Diaz MD [address] [place] [address] PCP - General 08/14/11 documented as of this encounter
--- OUTSIDE RECORDS SUMMARY | 2024-01-09 13:18 | XMS_ITS | Encounter Summary ---
Author Organization [facility] Address [address] [place] [address] Care Team Providers Care Board Finisher Name Role Phone Delmar Diaz MD Primary Care Provider [phone] Encounter Details Date Type Department Care Team (Latest Contact Info) Description 06/15/2021 Travel Social History Tobacco Use Types Packs/Day Years [...] on file Sexual Orientation Not on file COVID-19 Exposure Response Date Recorded In the last 10 days, have yo u been in contact with someone who was confirmed or suspected to have Coronavirus/COVID-19? No / Unsure 06/15/2021 10:02 EDT documented as of this encounter Functional Status [...] 04/30/2017 14:38 EST documented in this encounter Plan of Treatment Not on file documented as of this encounter Visit Diagnoses Not on filedocumented in this encounter Care Teams Board Finisher Relationship Specialty Start Date End Date Delmar Diaz MD [address] [place] [address] PCP - General 08/14/11 documented as of this encounter
--- OUTSIDE RECORDS SUMMARY | 2024-01-09 13:18 | XMS_ITS | Encounter Summary ---
Author Organization [facility] Address [address] [place] [address] Care Team Providers Care Print Shop Assistant Name Role Phone Delmar Diaz MD Primary Care Provider [phone] Reason for Visit * Reason Comments Follow-up f/u Colon Ca Encounter Details Date Type Department Care Team (Late st Contact Info) Description 04/17/2016 15:30 EST Office Visit [facility] General Surgery - [address] [address] Segun Rodríguez MD [address] [facility], [address] [place] [address] Malignant neoplasm of sigmoid colon [...] on file documented as of this encounter Discharge Diagnoses Diagnosis C18.7 Malignant neoplasm of sigmoid colon-C18.7[ICD-10-CM] documented in this encounter Discharge Disposition Disposition Code Departure Means Destination Auto Discharge documented in this encounter Progress Notes * Segun Rodríguez MD - 04/17/2016 1530 EST S/p colectomy by Dr Zepeda for colon ca 2011 Followed by Jeannie Last colo 2014 No CTs CEAs normal Recently admitted to [facility] for herpes encephalitis Recovering well PE Slight L facial droop Lungs clear Cor RRR abd benign No LN or skin lesions Ventral hernia A/p check CEA F/u 1 yr with CEA [place] 2018 documented in this encounter Plan of Treatment Not on file documented as of this encounter Visit Diagnoses Diagnosis Malignant neoplasm of sigmoid colon (HCC-CMS)- Primary Malignant neoplasm of sigmoid colon documented in this encounter Historical Medications * This list may reflect changes made after this encounter. gabapentin (NEURONTIN) 300 mg capsule Take 300 mg by mouth at bedtime. losartan (COZAAR) 50 mg tablet Take 50 mg by mouth daily. GABAPENTIN ORAL Take 200 mg by mouth daily. valACYclovir (VALTREX) 1 gram tablet Take 1,000 mg by mouth 2 times daily. added in this encounter Orders Lab Orders Without Results Count Last Ordered D ate First Ordered Date CEA 1 04/17/2016 documented in this encounter Care Teams Print Shop Assistant Relationship Specialty Start Date End Date Delmar Diaz MD [address] [place] [address] PCP - General 08/14/11 documented as of this encounter
--- OUTSIDE RECORDS SUMMARY | 2024-01-09 13:18 | XMS_ITS | Referral Summary ---
Author Organization [facility] Address [address] [place] [address] Care Team Providers Care Manager Budget Name Role Phone Delmar Diaz MD Primary Care Provider [phone] Allergies Active Allergy Reactions Criticality Noted Date [...] mouth 4 times daily as needed. Active Thch-Itza-PQK#1 -O-Ttml-Yoq-Bor (OSTEO BI-FLEX) 750-625-30 mg Tab Take by [...] original. Patient has given verbal permission to [facility] to speak with his spouse Anna Acevedo and son Quirino Acevedo on pt's behalf for medical care. Aniya Mcclellan 06/10/2021 18:29 Problem Noted Date Diagnosed Date Malignant tumor of colon (HCC-CMS) Colon polyp Allergic rhinitis Social History Tobacco Use Types Packs/Day Years [...] on file Sexual Orientation Not on file Last Filed Vital Signs Vital Sign Reading [...] Body Mass Index 23.53 06/15/2021 1004 EDT Functional Status * Because of a physical, mental, or emotional condition, does this person have difficulty doing errands alone such as visiting a doctor's office or shopping? Answer Date of Assessment Author No 04/30/2017 14:38 EST Mental Status * Because of a physical, mental, or emotional condition, does this person have serious difficulty concentrating, remembering, or making decisions? Answer Entry Date Author No 04/30/2017 14:38 EST Plan of Treatment Not on file Procedures Procedure Name Priority Date/Time Associated Diagnosis [...] Loss: None Complications None Medications none none [place] Bowel Prep Right Colon: 3 ? Transverse [...] record. 06/15/2021 10:50:31 AM By Segun Rodríguez us Segun Rodríguez MD GI PROCEDURE ORDERABLES Final Result from Last 3 Months or Most Recently Relevant to Health Maintenance Insurance [facility] [place] Care Teams Manager Budget Relationship Specialty Start Date End Date Delmar Diaz MD [address] [place] [address] PCP - General 08/14/11
--- OUTSIDE RECORDS SUMMARY | 2024-01-09 13:18 | XMS_ITS | Encounter Summary ---
Author Organization [facility] Address [address] [place] [address] Care Team Providers Care Irrigator Valve Pipe Name Role Phone Delmar Diaz MD Primary Care Provider Encounter Details Date Type Department Care Team (Late st Contact Info) Description 11/03/2020 Lab Requisition [facility] Pathology & Laboratory Medicine - [facility] [address] [place] [address] Outr Resulting Lab, Provider Social History Tobacco Use Types Packs/Day Years [...] Procedure Name Priority Date/Time Associated Diagnosis Comments ZZCOVID-19 TEST [facility] PCR Today 11/02/2020 9:00 EDT COVID-19 TESTING Routine 11/02/2020 9:00 EDT documented in this encounter Results * COVID-19 TEST [facility] PCR (11/02/2020 9:00 EDT) Swab ENTIRE NASOPHARYNX / Unknown 11/02/2020 9:00 EDT 11/03/2020 15:47 EDT us Provider Outr Resulting Lab MICROBIOLOGY - GENER AL ORDERABLES Final Result [facility] [address] [place] [address] * COVID-19 TESTING (11/02/2020 9:00 EDT) COVID-19 rt-PCR Result Negative Negative 11/04/2020 17:14 EDT [facility] Comment: This test has not been FDA cleared or approved. This test has been authorized by FDA under an EUA for use by authorized laboratories. This test has been authorized only for detection of nucleic acid from 2019-nCoV, not for any other viruses or pathogens. This test is only authorized for the duration of the declaration that circumstances exist justifying the authorization of emergency use of in vitro diagnostic tests for detection and/or diagnosis of 2019-nCoV under section 564(b)(1) of Act, 21 U.S.C ?? 360bbb-3(b) (1), unless the authorization is terminated or revoked sooner. Negative results do not preclude 2019-nCoV infection and should not be used as the sole basis for treatment or other patient management decisions. Negative results must be combined with clinical observations, patient history, and epidemiological information. Testing was performed using the coby SARS-CoV-2 assay ([employer] on the Coby 6800 System Performing Lab Coby 6800 [facility] 11/04/2020 17:14 EDT [facility] Swab 11/02/2020 9:00 EDT 11/03/2020 15:47 EDT us Provider Outr Resulting Lab MICROBIOLOGY - GENER AL ORDERABLES Final Result [facility] [address] [place] [address] documented in this encounter Visit Diagnoses Not on filedocumented in this encounter Care Teams Irrigator Valve Pipe Relationship Specialty Start Date End Date Demlar Diaz MD [address] [place] [address] PCP - General 08/14/11 documented as of this encounter
--- OUTSIDE RECORDS SUMMARY | 2024-01-09 13:18 | XMS_ITS | Encounter Summary ---
Author Organization [facility] Address [address] [place] [address] Care Team Providers Care Clearing House Clerk Name Role Phone Delmar Diaz MD Primary Care Provider [phone] Encounter Details Date Type Department Care Team (Late st Contact Info) Description 12/12/2012 Documentation Visit [facility] General Surgery - [facility] [address] [place] [address] Pal Dennis MD [address] [place] [address] Social History Tobacco Use Types Packs/Day Years [...] Progress Notes * Pal Dennis - 12/12/2012 1820 EDT [facility] December 12, 2012 Wang Acevedo [address] [address] : 1950 Dear Mr Acevedo: l am delighted to let you know that your CEA blood test, the test for recurrent cancer, was completely normal. The specific level was 2.2, which is exactly the same as it was 4 months ago. Of course, I am thrilled to share this good news with you. Please let me know if you have any questions in this regard. Sincerely, Pal Dennis MD, FACS 09 31 AM - Pal Dennis MD, FACS bn Dictation ID: [id number] cc: The Patient documented in this encounter Plan of Treatment Not on file documented as of this encounter Visit Diagnoses Not on filedocumented in this encounter Care Teams Clearing House Clerk Relationship Specialty Start Date End Date Delmar Diaz MD [address] [place] [address] PCP - General 08/14/11 documented as of this encounter
--- OUTSIDE RECORDS SUMMARY | 2024-01-09 13:18 | XMS_ITS | Encounter Summary ---
Author Organization [facility] Address [address] [place] [address] Care Team Providers Care Operator Supply Name Role Phone Delmar Diaz MD Primary Care Provider [phone] Reason for Visit * Reason Onset Date Comments Other 05/31/2018 Encounter Details Date Type Department Care Team (Late st Contact Info) Description 05/31/2018 Telephone [facility] General Surgery - [facility] [address] [place], [place] [id number] Segun Rodríguez MD [address] [place] [address], [address] [place] [address] Other Social History Tobacco Use [...] Miscellaneous Notes * Telephone Encounter - Alva Deluna, RN - 05/31/2018 1220 EDT Reviewed pathology results with patient from colonoscopy in Mar. He had no further questions * Telephone Encounter - Mckenna Wood - 05/31/2018 1106 EDT Pt calling/ never rec'd letter or call regarding his polyup documented in this encounter Plan of Treatment Not on file documented as of this encounter Visit Diagnoses Not on filedocumented in this encounter Care Teams Operator Supply Relationship Specialty Start Date End Date Delmar Diaz MD [address] [place] [address] PCP - General 08/14/11 documented as of this encounter
--- OUTSIDE RECORDS SUMMARY | 2024-01-09 13:18 | XMS_ITS | Encounter Summary ---
Author Organization [facility] Address [address] [place] [address] Care Team Providers Care Almond Paste Molder Name Role Phone Delmar Diaz MD Primary Care Provider [phone] Encounter Details Date Type Department Care Team (Late st Contact Info) Description 04/30/2017 Phlebotomy Only [facility] [address] [place] [address] End Finder Twisting Department, Outpatient Malignant neoplasm of colon, unspecified part of colon (CMS-HCC) (HCC-CMS) (Primary Dx) Social History Tobacco [...] Priority Date/Time Associated Diagnosis Comments CEA Routine 04/30/2017 13:58 EST Malignant neoplasm of colon, unspecified part of colon (CMS-HCC) (HCC-CMS) documented in this encounter Results * CEA (04/30/2017 13:58 EST) CEA 2.0 ng/ml 05/01/2017 10:10 EST [facility] Comment: % Distribution of CEA (ng/ml) 0-2.5 in 98.2% of non-smokers and 87.3% of smokers 2.6-5.0 in 1.8% of non-smokers and 8.0% of smokers 5.1-10.1 in 4.7% of smokers Serum CEA concentration should not be interpreted as absolute evidence for the presence or absence of malignant disease. Assayed utilizing comScore ([employer]) chemiluminescent technology. ??Values obtained by using different assay methods cannot be used interchangeably. Blood specimen (specimen) BLOOD SPECIMEN / Unknown 04/30/2017 13:58 EST 04/30/2017 14:37 EST us Segun Rodríguez MD CHEMISTRY & BLOOD GAS ORDERAB LES Final Result [facility] [address] [place] [address] documented in this encounter Visit Diagnoses Diagnosis Malignant neoplasm of colon, unspecified part of colon (HCC-CMS)- Primary documented in this encounter Care Teams Almond Paste Molder Relationship Specialty Start Date End Date Delmar Diaz MD [address] [place] [address] PCP - General 08/14/11 documented as of this encounter
--- OUTSIDE RECORDS SUMMARY | 2024-01-09 13:18 | XMS_ITS | Encounter Summary ---
Author Organization [facility] Address [address] [place] [address] Care Team Providers Care Hand Router Operator Name Role Phone Delmar Diaz MD Primary Care Provider [phone] Reason for Visit * Reason Onset Date Comments Results 02/25/2014 CEA end of er. Encounter Details Date Type Department Care Team (Late st Contact Info) Description 02/25/[address] [facility] General Surgery - [address] [id number] Segun Rodríguez MD [address] [facility], [address] [place] [address] Results (CEA end of November.) Social History Tobacco Use Types Packs/Day Years [...] encounter Miscellaneous Notes * Telephone Encounter - Daja Garcia RN - 02/25/2014 1007 EST Wang is calling to ask about his CEA level drawn on 12/19/13, same day that he saw Dr Rodríguez. I have reviewed and returned a call and per patient request I have left the normal result with his . She has acknowledged and will give Wang the message. documented in this encounter Plan of Treatment Not on file documented as of this encounter Visit Diagnoses Not on filedocumented in this encounter Care Teams Hand Router Operator Relationship Specialty Start Date End Date Delmar Diaz MD [address] [place] [address] PCP - General 08/14/11 documented as of this encounter
--- OUTSIDE RECORDS SUMMARY | 2024-01-09 13:18 | XMS_ITS | Encounter Summary ---
Author Organization [facility] Address [address] [place] [address] Care Team Providers Care Live In Housekeeper Name Role Phone Delmar Diaz MD Primary Care Provider [phone] Reason for Visit * Reason Onset Date Comments Appointment Related 07/16/2017 Encounter Details Date Type Department Care Team (Late st Contact Info) Description 07/16/2017 Telephone [facility] General Surgery - [facility] [address] [place] [address] Segun Rodríguez MD [address] [place] [address], [address] [place] [address] Appointment Related Social History Tobacco [...] encounter Miscellaneous Notes * Telephone Encounter - Angelina Dia - 07/16/2017 0950 EDT Colonoscopy appointment change to 01/30/18 patient aware documented in this encounter Plan of Treatment Not on file documented as of this encounter Visit Diagnoses Not on filedocumented in this encounter Care Teams Live In Housekeeper Relationship Specialty Start Date End Date Delmar Diaz MD [address] [place] [address] PCP - General 08/14/11 documented as of this encounter
--- OUTSIDE RECORDS SUMMARY | 2024-01-09 13:18 | XMS_ITS | Encounter Summary ---
Author Organization [facility] Address [address] [place] [address] Care Team Providers Care Urgent Care Nurse Practitioner Name Role Phone Delmar Diaz MD Primary Care Provider [phone] Encounter Details Date Type Department Care Team (Late st Contact Info) Description 12/19/2013 Phlebotomy Only [facility] [address] [place] [address] Clinical Laboratory Aides Teacher, Outpatient Personal history of colon cancer Social History Tobacco Use Types Packs/Day Years [...] Priority Date/Time Associated Diagnosis Comments CEA Routine 12/19/2013 13:44 EDT Personal history of colon cancer documented in this encounter Results * CEA (12/19/2013 13:44 EDT) CEA 2.1 ng/ml [facility] Comment: % Distribution of CEA (ng/ml) 0-2.5 in 98.2% of non-smokers and 87.3% of smokers 2.6-5.0 in 1.8% of non-smokers and 8.0% of smokers 5.1-10.1 in 4.7% of smokers Serum CEA concentration should not be interpreted as absolute evidence for the presence or absence of malignant disease. Assayed utilizing Siemens (Each[employer]) chemiluminescent technology. ??Values obtained by using different assay methods cannot be used interchangeably. Blood specimen (specimen) 12/19/2013 13:44 EDT 12/19/2013 14:28 EDT us Segun Rodríguez MD CHEMISTRY & BLOOD GAS ORDERAB LES Final Result [facility] [address] [place] [address] documented in this encounter Visit Diagnoses Diagnosis Personal history of colon cancer Personal history of malignant neoplasm of large intestine documented in this encounter Care Teams Urgent Care Nurse Practitioner Relationship Specialty Start Date End Date Delmar Diaz MD [address] [place] [address] PCP - General 08/14/11 documented as of this encounter
--- OUTSIDE RECORDS SUMMARY | 2024-01-09 13:18 | XMS_ITS | Encounter Summary ---
Author Organization [facility] Address [address] [place] [address] Care Team Providers Care Information Assurance Engineer Name Role Phone Delmar Diaz MD Primary Care Provider Encounter Details Date Type Department Care Team (Late st Contact Info) Description 01/15/2015 Orders Only [facility] General Surgery - [facility] [address] [place] [address] Manisha Lozano, RN Malignant neoplasm of colon, unspecified part of colon (CMS-HCC) (Primary Dx) Social History Tobacco Use Types Packs/Day Years Used Date Smoking Tobacco: Never Alcohol Use Standard Drinks/Week Comments No 0 (1 standard drink = 0.6 oz pur e alcohol) Sex and Gender Information Value Date Recorded Sex Assigned at Not on file Legal Sex Male 18:16 EST Gender Identity Not on file Sexual Orientation Not on file documented as of this encounter Ordered Prescriptions Prescription Sig Dispense Quantity Refills Last Filled Start Date End Date polyethylene glycol (GOLYTELY) 236-22.74-6.74 -5.86 gram suspension Patient to follow directions given by Dr. Rodríguez's office 1 Bottle 0 01/15/2015 8 documented in this encounter Plan of Treatment Not on file documented as of this encounter Visit Diagnoses Diagnosis Malignant neoplasm of colon, unspecified part of colon (HCC-CMS)- Primary documented in this encounter Care Teams Information Assurance Engineer Relationship Specialty Start Date End Date Delmar Diaz MD [address] [place] [address] PCP - General 08/14/11 documented as of this encounter
--- OUTSIDE RECORDS SUMMARY | 2024-01-09 13:18 | XMS_ITS | Encounter Summary ---
Author Organization [facility] Address [address] [place] [address] Care Team Providers Care Powder Hand Name Role Phone Delmar Diaz MD Primary Care Provider Reason for Visit * Reason Onset Date Comments Results 04/02/2015 Patient is jeanne olayinka for his CEA results from 01/28/16. Encounter Details Date Type Department Care Team (Late st Contact Info) Description 04/02/2015 Telephone [facility] General Surgery - [facility] [address] [place], [place] [id number] Segun Rodríguez MD [address] [facility], [address] [place] [address] Results (Patient is calling for his CEA results from 01/28/16.) Social History Tobacco Use Types Packs/Day Years [...] Telephone Encounter - Daja Garcia RN - 04/02/2015 1529 EST Wang is calling to find out the CEA results for 01/27/15. Results for WANG DUNBAR ( ) as of 04/02/2015 15:29 Ref. Range 05/26/2012 11:11 08/07/2012 09:31 12/11/2012 14:43 12/19/2013 13:44 01/27/2015 09:22 CEA Latest Units: ng/ml 1.7 2.2 2.2 2.1 2.2 I have reviewed the above results and he is aware this is normal and he has no other questions. documented in this encounter Plan of Treatment Not on file documented as of this encounter Visit Diagnoses Not on filedocumented in this encounter Care Teams Powder Hand Relationship Specialty Start Date End Date Delmar Diaz MD [address] [place] [address] PCP - General 08/14/11 documented as of this encounter
--- OUTSIDE RECORDS SUMMARY | 2024-01-09 13:18 | XMS_ITS | Encounter Summary ---
Author Organization [facility] Address [address] [place] [address] Care Team Providers Care Kardex Clerk Name Role Phone Delmar Diaz MD Primary Care Provider Encounter Details Date Type Department Care Team (Late st Contact Info) Description 01/01/2015 Orders Only [facility] General Surgery - [facility] [address] [place], [place] [id number] Segun Rodríguez MD [address] [facility], [address] [place] [address] Malignant neoplasm of colon, unspecified [...] as of this encounter Results * CEA (01/27/2015 9:22 EST) CEA 2.2 ng/ml 01/27/2015 11:32 EST [facility] Comment: % Distribution of CEA (ng/ml) 0-2.5 in 98.2% of non-smokers and 87.3% of smokers 2.6-5.0 in 1.8% of non-smokers and 8.0% of smokers 5.1-10.1 in 4.7% of smokers Serum CEA concentration should not be interpreted as absolute evidence for the presence or absence of malignant disease. Assayed utilizing [employer] ([employer]) chemiluminescent technology. ??Values obtained by using different assay methods cannot be used interchangeably. Blood specimen (specimen) BLOOD SPECIMEN / Unknown 01/27/2015 9:22 EST 01/27/2015 9:50 EST us Segun Rodríguez MD CHEMISTRY & BLOOD GAS ORDERAB LES Final Result [facility] [address] [place] [address] documented in this encounter Visit Diagnoses Diagnosis Malignant neoplasm of colon, unspecified part of colon (HCC-CMS)- Primary documented in this encounter Care Teams Kardex Clerk Relationship Specialty Start Date End Date Delmar Diaz MD [address] [place] [id number] PCP - General 08/14/11 documented as of this encounter
--- OUTSIDE RECORDS SUMMARY | 2024-01-09 13:18 | XMS_ITS | Encounter Summary ---
Author Organization [facility] Address [address] [place] [address] Care Team Providers Care Filler Mixer Name Role Phone Delmar Diaz MD Primary Care Provider Reason for Referral * Referral (Routine/Next Available) - Receiving Office to Obtain Authorization Specialty Diagnoses / Procedures Referred By Contact Referred To Contact Gastroenterology and Hepatology Procedures COLONOSCOPY PROCEDURE Segun Rodríguez MD Phone: tel: fax: Referral ID Status Reason Start Date Expiration Date Visits Requested Visits Authorized [id number] Receiving Office to Obtain Authorization 06/15/2021 1 1 Reason for Visit * Test (Routine) - Authorized Specialty Diagnoses / Procedures Referred By Contac t Referred To Contact General Surgery Diagnoses Personal history of colon cancer Hx of colonic polyps Procedures COLONOSCOPY VA COLONOSCOPY FLX DX W/COLLJ SPEC WHEN PFRMD Segun Rodríguez MD Phone: tel: fax: Referral ID Status Reason Start Date Expiration Date V isits Requested Visits Authorized [id number] Authorized 1 1 Encounter Details Date Type Department Care Team (Late st Contact Info) Description 06/15/2021 9:43 EDT - 06/15/2021 23:59 EDT Hospital Encounter [facility] Endoscopy - [facility] [place] [address] [place] [address] Segun Rodríguez MD [address] [facility], [facility], [address] [place] [id number] Discharge Disposition: Home or Self Care Social [...] 10:02 EDT documented as of this encounter Last Filed Vital Signs Vital Sign Reading Time Taken Comments Blood Pressure 126/76 06/15/2021 1110 EDT Pulse - - Temperature 36.9 ??C (98.4 ??F) 06/15/2021 1108 EDT Respiratory Rate 13 06/15/2021 1110 EDT Oxygen Saturation 94% 06/15/2021 1110 EDT Inhaled Oxygen Concentration - - Weight 74.4 kg (164 lb) 06/15/2021 1004 EDT Height 177.8 cm (5' 10) 06/15/2021 1004 EDT Body Mass Index 23.53 06/15/2021 1004 EDT documented in this encounter Functional Status * Because of [...] 04/30/2017 14:38 EST documented in this encounter Medications at [...] by mouth 4 times daily as needed. cephalexin (KEFLEX) 250 mg/5 mL suspension Take 2,000 mg by mouth as needed (before dental appt). FLAXSEED OIL ORAL Take 1 Tab by mouth daily. Reported on 04/17/2016 gabapentin (NEURONTIN) 300 mg capsule Take 300 mg by mouth at bedtime. GABAPENTIN ORAL Take 200 mg by mouth daily. Muni-Kzdq-JXS#1- U-Fkmk-Efo-Bor (OSTEO BI-FLEX) 750-625-30 mg Tab Take by mouth daily. Reported on 04/17/2016 KRILL OIL ORAL Take by mouth daily. Reported on 04/17/2016 losartan (COZAAR) 50 mg tablet Take 50 mg by mouth daily. omega-3 fatty acids (FISH OIL CONCENTRATE) 1,000 mg cap capsule Take 1,000 mg by mouth daily. Reported on 04/17/2016 polyethylene glycol (GOLYTELY) 236-22.74-6.74 -5.86 gram suspension Patient to follow one time directions sent from Dr Rodríguez office. 1 Each 05/31/2021 triamterene-hydr ochlorothiazide (MAXZIDE) 37.5-25 mg per tablet Take 1 Tab by mouth daily. UNABLE TO FIND daily. Reported on 04/17/2016 valACYclovir (VALTREX) 1 gram tablet Take 1,000 mg by mouth 2 times daily. documented as of this encounter Discharge Disposition Disposition Code Departure Means Destination Home or Self Senior Living documented in this encounter H&P Notes * Segun Rodríguez MD - 06/15/2021 1040 EDT Endoscopy Sedation for Procedure History & Physical Date: 06/15/2021 Time: 10:52 Location: [facility] Endoscopy - Main [place] Planned Procedure: Colonoscopy Chief Complaint/Indications for Procedure: Personal history of colon cancer History Previous Complication with Sedation and/or Anesthesia? No Allergies: Allergies Allergen Reactions ??? Ativan [Lorazepam] Shortness Of Breath Current Medications: Current Outpatient Medications Medication ??? acetaminophen (TYLENOL) 325 mg tablet ??? ALBUTEROL SULFATE (PROVENTIL INHL) ??? aspirin chewable 81 mg tablet ??? calcium carbonate (TUMS) 200 mg calcium (500 mg) Chew ??? cephalexin (KEFLEX) 250 mg/5 mL suspension ??? FLAXSEED OIL ORAL ??? gabapentin (NEURONTIN) 300 mg capsule ??? GABAPENTIN ORAL ??? Wxjv-Tdji-NQB#7-D-Eqan-Jorge A-Bor (OSTEO BI-FLEX) 750-625-30 mg Tab ??? KRILL OIL ORAL ??? losartan (COZAAR) 50 mg tablet ??? omega-3 fatty acids (FISH OIL CONCENTRATE) 1,000 mg cap capsule ??? polyethylene glycol (GOLYTELY) 236-22.74-6.74 -5.86 gram suspension ??? triamterene-hydrochlorothiazide (MAXZIDE) 37.5-25 mg per tablet ??? UNABLE TO FIND ??? valACYclovir (VALTREX) 1 gram tablet Current Facility-Administered Medications Medication Route Frequency ??? diphenhydrAMINE (BENADRYL) injection 25 mg intravenous Once PRN ??? sodium chloride 0.9 % (NS) infusion intravenous PRN Or ??? lactated ringers (LR) infusion intravenous PRN ??? lidocaine (PF) 10 mg/mL (1 %) injection 2 mg intradermal PRN ??? lidocaine (PF) 10 mg/mL (1 %) injection 2 mg intradermal PRN ??? ondansetron (PF) (ZOFRAN) injection 2-4 mg intravenous PRN ??? sodium chloride 0.9 % (flush) flush 3 mL intravenous PRN ??? sodium chloride 0.9 % (flush) flush 5 mL intravenous Q8H Past Medical History: Past Medical History: Diagnosis Date ??? Allergic rhinitis ??? Asthma ??? Colon cancer (HCC-CMS) (HCC) 2005 ??? Colon polyp 2002/2009 ??? Hypertension ??? Lung disease ??? Shallow breathing ??? Shingles shingles on the brain 6 yrs ago ??? Spasm of bronchus 12/07/10 Social History: Past Surgical History: Procedure Laterality Date ??? COLECTOMY 11/18/2009 10/04/10 Left Hemicolectomy ??? COLON SURGERY 09/21/2010 2010 Repair of colon perforation ??? JOINT REPLACEMENT ??? JOINT REPLACEMENT bilateral knees ??? KNEE SURGERY Left ??? TONSILLECTOMY Social History Tobacco Use ??? Smoking status: Never Smoker ??? Smokeless tobacco: Never Used Substance Use Topics ??? Alcohol use: No Family History: Family History Problem Relation [...] as pertinent: Physical Exam Vital Signs: BP 134/86 Temp 36.7 ??C (98.1 ??F) (Temporal) Resp 17 Ht 177.8 cm (70) Wt 74.4 kg (164 lb) SpO2 98% BMI 23.53 kg/m?? Heart Examination: Cardiac Regularity: Regular Respiratory Examination: Respiratory Pattern: Regular Breath Sounds Right: Clear Breath Sounds Left: Clear Abdominal Examination: Soft, non-tender, bowel sounds normal, no masses, no organomegaly Additional physical exam related to the proposed procedure, patient activity, disease state and treatment as pertinent: Assessment Previous complications with sedation or anesthesia?: No Airway Concerns: None/NA Anesthesia Classification: ASA 2 Plan: Proceed with sedation for procedure Fasting Time: Date of Last Liquid: 06/15/21 Time of Last Liquid: 0700 (sip with meds) Date of Last Solid: 06/13/21 Time of Last Solid: 2300 Patient Appropriate Candidate for Planned Sedation?: Yes Segun Rodríguez MD 06/15/2021 10:52 documented in this encounter Plan of Treatment Not on file documented as of this encounter Procedures Procedure Name Priority Date/Time Associated Diagnosis Comments COLONOSCOPY PROCEDURE Routine 06/15/2021 10:50 EDT SURGICAL PATHOLOGY Routine 06/15/2021 10 :44 EDT documented in this encounter Results * COLONOSCOPY PROCEDURE (06/15/2021 10:50 EDT) [...] Loss: None Complications None Medications none none [place] Bowel Prep Right Colon: 3 ? Transverse [...] Rodríguez MD GI PROCEDURE ORDERABLES Final Result * SURGICAL PATHOLOGY (06/15/2021 10:44 EDT) Note to Patient The following pathology results have been interpreted by your pathologist and may be available to you before your health provider has had the opportunity to review them. Please allow time for your provider to receive these results and explore management options, if applicable. 06/17/2021 9:48 EDT [facility] Final Diagnosis A. RECTUM, DISTAL, POLYPS, BIOPSIES: - Tubular adenoma. - Consistent with hyperplastic polyp. 06/17/2021 9:48 [facility] Attestation There was significant resident/fellow involvement in the diagnostic evaluation of this case. By the signature below, the attending physician certifies that they have personally conducted a gross and/or microscopic examination of the described specimens and rendered or confirmed the above diagnosis. 06/17/2021 9:48 [facility] at 0948 Clinical History Surveillance colonoscopy for hx of colon Ca & polyps 06/17/2021 9:48 [facility] Gross Description A. Received in formalin labelled with proper patient identification (initials G, A) and distal rectal polyps are two almonte nodular tissues, 0.4 x 0.3 x 0.2 cm and 0.5 x 0.3 x 0.2 cm. Entirely submitted in A1. DEIDRA VAZQUEZ(ASCP) 06/15/2021 13:43 06/17/2021 9:48 [facility] Resident/Enoc w: Carol Santana MD PhD 06/17/2021 9:48 [facility] Performing Lab [facility] 06/17/2021 9:48 [facility] Scanned Images 06/17/2021 9:48 [facility] Tissue SPECIMEN FROM RECTUM / Unknown 06/15/2021 10:44 EDT 06/15/2021 11:47 EDT us Segun Rodríguez MD PATHOLOGY ORDERABLES Final Re sult [facility] [address] [place] [address] documented in this encounter Visit Diagnoses Not on filedocumented in this encounter Administered Medications Inactive Administered Medications - up to 3 most recent administrations Medication Order MAR Action Action Date Dose Rate Site lactated ringers (LR) infusion 30 mL/hr, intravenous, PRN, Starting on Sun06/15/21 at 1009, Until 06/18/21 at 0203, Routine, Preprocedure New Bag 06/15/2021 10:11 EDT 30 mL/hr 30 mL /hr documented in this encounter Historical Medications * This list may reflect changes made after this encounter. cephalexin (KEFLEX) 250 mg/5 mL suspension Take 2,000 mg by mouth as needed (before dental appt). added in this encounter Orders Medications Ordered That Cassius ht Not Have Been Administered Count Last Ordered Date First Ordered Date diphenhydrAMINE (BENADRYL) injection 25 mg 1 06/15/2021 lidocaine (PF) 10 mg/mL (1 % ) injection 2 mg 2 06/15/2021 ondansetron (PF) (ZOFRAN) injection 2-4 mg 1 06/15/2021 sodium chloride 0.9 % (flush) flush 3 mL 1 06/15/2021 sodium chloride 0.9 % (flush) flush 5 mL 1 06/15/2021 sodium chloride 0.9 % (NS) infusion 1 06/15 documented in this encounter Care Teams Filler Mixer Relationship Specialty Start Date End Date Delmar Diaz MD [address] [place] [address] PCP - General 08/14/11 documented as of this encounter
--- OUTSIDE RECORDS SUMMARY | 2024-01-09 13:18 | XMS_ITS | Encounter Summary ---
Author Organization [facility] Address [address] [place] [address] Care Team Providers Care Dough Maker Name Role Phone Delmar Diaz MD Primary Care Provider [phone] Encounter Details Date Type Department Care Team (Late st Contact Info) Description 05/31/2021 Orders Only [facility] General Surgery - [facility] [address] [place] [address] Daja Garcia, RN [address] [place] [address] Social History Tobacco Use Types Packs/Day Years [...] from Dr Rodríguez office. 1 Each 05/31/2021 documented in this encounter Plan of Treatment Not on file documented as of this encounter Visit Diagnoses Not on filedocumented in this encounter Discontinued Medications Medication Sig Discontinue Reason Start Date End Da te polyethylene glycol (GOLYTELY) 236-22.74-6.74 -5.86 gram suspension Take as directed prior to procedure Therapy completed 01/23/2018 05/31/2021 documented as of this encounter Care Teams Dough Maker Relationship Specialty Start Date End Date Delmar Diaz MD [address] [place] [address] PCP - General 08/14/11 documented as of this encounter
--- OUTSIDE RECORDS SUMMARY | 2024-01-09 13:18 | XMS_ITS | Encounter Summary ---
Author Organization [facility] Address [address] [place] [address] Care Team Providers Care Street Roller Engineer Name Role Phone Karly Diaz MD Primary Care Provider Encounter Details Date Type Department Care Team (Late st Contact Info) Description 04/03/2018 10:01 EST - 04/03/2018 12:20 EST Hospital Encounter [facility] Endoscopy Outpatient [address] [place] [address] Tushar Tyler MD [address] [facility], [facility] [address] [place] [address] Discharge Disposition: Home or Self Care Social [...] Sign Reading Time Taken Comments Blood Pressure 119/79 04/03/2018 1201 EST Pulse - - Temperature 36 ??C (96.8 ??F) 04/03/2018 1125 EST Respiratory Rate 12 04/03/2018 1201 EST Oxygen Saturation 94% 04/03/2018 1201 EST Inhaled Oxygen Concentration - - Weight 81.2 kg (179 lb) 04/03/2018 1034 EST Height 180.3 cm (5' 11) 04/03/2018 1034 EST Body Mass Index 24.97 04/03/2018 1034 EST documented in this encounter Functional Status * [...] documented in this encounter Discharge Diagnoses Diagnosis Z85.038 Personal history of other malignant neoplasm of large intestine-Z85.038[ICD-10-CM] K62.1 Rectal polyp-K62.1[ICD-10-CM] Z80.0 Family history of malignant neoplasm of digestive organs-Z80.0[ICD-10-CM] I10 Essential (primary) hypertension-I10[ICD-10-CM] Z79.82 [facility] (current) use of aspirin-Z79.82[ICD-10-CM] Z79.899 Other terminal makeup operator (current) drug therapy-Z79.899[ICD-10-CM] documented in this encounter Medications at Time [...] ORAL Take 200 mg by mouth daily. Zcsy-Tote-FAG#1- H-Yvpr-Qkx-Bor (OSTEO BI-FLEX) 750-625-30 mg Tab Take by [...] 1,000 mg by mouth 2 times daily. polyethylene glycol (GOLYTELY) 236-22.74-6.74 -5.86 gram suspension Take as directed prior to procedure 1 Bottle 01/23/2018 2 documented as of this encounter Discharge Disposition Disposition Code Departure Means Destination Home or Self Care documented in this encounter H&P Notes * Tushar Tyler MD - 04/03/2018 1050 EST Endoscopy Sedation for Procedure History & Physical Date: 04/03/2018 Time: 10:50 Location: [facility] Endo Planned Procedure: Colonoscopy Chief Complaint/Indications for Procedure: 3 year screening, Colon Cancer 8 years ago History Previous Complication with Sedation and/or Anesthesia? No Allergies: Allergies Allergen Reactions ??? Ativan [Lorazepam] Shortness Of Breath Current Medications: Current Outpatient Medications: acetaminophen (TYLENOL) 325 mg tablet ALBUTEROL SULFATE (PROVENTIL INHL) aspirin chewable 81 mg tablet calcium carbonate (TUMS) 200 mg calcium (500 mg) Chew FLAXSEED OIL ORAL gabapentin (NEURONTIN) 300 mg capsule GABAPENTIN ORAL Keim-Rfvv-FJU#3-I-Hwzp-Jorge A-Bor (OSTEO BI-FLEX) 750-625-30 mg Tab KRILL OIL ORAL losartan (COZAAR) 50 mg tablet omega-3 fatty acids (FISH OIL CONCENTRATE) 1,000 mg cap capsule polyethylene glycol (GOLYTELY) 236-22.74-6.74 -5.86 gram suspension triamterene-hydrochlorothiazide (MAXZIDE) 37.5-25 mg per tablet UNABLE TO FIND valACYclovir (VALTREX) 1 gram tablet Current Facility-Administered Medications: lactated ringers (LR) infusion intravenous CONTINUOUS meperidine (PF) (DEMEROL) injection 25-100 mg intravenous Once PRN midazolam (MDV) (VERSED) injection 1-5 mg intravenous Once PRN sodium chloride 0.9 % flush 3 mL intravenous PRN Past Medical History: Past Medical History: Diagnosis Date ??? Allergic rhinitis ??? Colon cancer (HCC-CMS) 2005 ??? Colon polyp ??? Hypertension ??? Lung disease ??? Spasm of bronchus 12/07/10 Social History: Past Surgical History: Procedure Laterality Date ??? COLECTOMY 11/18/2009 11/29/09 Left Hemicolectomy ??? COLON SURGERY 09/21/2010 2010 Repair of colon perforation ??? KNEE SURGERY Left ??? TONSILLECTOMY Social [...] as pertinent: Physical Exam Vital Signs: BP 119/73 Temp 35.9 ??C (96.6 ??F) (Tympanic) Resp 14 Ht 180.3 cm (71) Wt 81.2 kg (179 lb) SpO2 94% BMI 24.97 kg/m?? Heart Examination: Cardiac Regularity: Regular Respiratory [...] Fasting Time: Time of last liquid intake: 0100 Date of Last Liquid Intake: 04/03/18 Time of last solid intake: 1800 Date of last solid intake: 04/01/18 Patient Appropriate Candidate for Planned Sedation?: Yes Tushar Tyler MD 04/03/2018 10:50 documented in this encounter Plan of Treatment Not on file documented as of this encounter Procedures Procedure Name Priority Date/Time Associated Diagnosis Comments SURGICAL PATHOLOGY Routine 04/03/2018 12 :59 EST COLONOSCOPY PROCEDURE Routine 04/03/2018 11:26 EST documented in this encounter Results * SURGICAL PATHOLOGY (04/03/2018 12:59 EST) Pathology Report: SURGICAL PATHOLOGY REPORT Reports generated via electronic interface contain original data; however they are lacking the format of the original report. Caution should be taken when reading/interpret ing unformatted reports. Name: ? WANG DUNBAR ? Accession #: ? [id number] ? : ? 1950 (Age: 67) ??M ? Collect Date: ? 04/03/2018 ? Location: ? ENDOP ? Receive Date: ? 04/03/2018 ? Provider: TUSHAR TYLER MD Copy to: KARLY DIAZ MD ? Final Pathologic Diagnosis: RECTUM, POLYP, BIOPSY: - Polypoid rectal mucosa with surface hyperplastic change. Document reviewed and electronically signed by: RINA BUCHANAN MD Report ??Date: 04/05/2018 10:11 By the signature above, the attending physician certifies that he/she has personally conducted a gross and/or microscopic examination of the described specimens and rendered or confirmed the above diagnosis. Specimen(s) Received: Rectal polyp, 8 cm from dentate Clinical History: Hx colon Ca; surveillance colonoscopy Gross Description: ? Received in formalin labelled with proper patient identification (initials G, A) and rectal polyp at 8 cm are multiple pink-almonte tissue fragments (0.7 x 0.7 x 0.3 cm in aggregate). Entirely submitted in 1 and 2. DEIDRA Garvin (ASCP) 04/03/2018 2:28 PM End of Report [facility] 04/03/2018 12:5 9 EST 04/03/2018 12:59 EST us Tushar Tyler MD PATHOLOGY ORDERABLES Final Re sult [facility] [address] [place] [address] * COLONOSCOPY PROCEDURE (04/03/2018 11:26 EST) Anatomical Region Laterality Modality Endoscopy Narrative 04/03/2018 11:26 EST Procedure Performed Colonoscopy - snare polypectomy Indications for Exam Surveillance.hx colon ca Procedure Technique A physical exam was performed. [...] advanced under direct visualization to the cecum. ?? The cecum was identified by visual landmarks. The endoscope was subsequently removed slowly while carefully examining the color, texture, anatomy, and integrity of the mucosa on withdrawal. Retroflexion was performed in the rectum: Yes. The patient was subsequently transferred to the recovery area in satisfactory condition. Rectal Exam:Normal Estimated Blood Loss: None Complications None Medications Versed 2 mg Demerol 75 mg I was in continuous face to face attendance during the administration of moderate sedation services that were monitored by an independent trained observer who had no other duties during the procedure. ??Total sedation time was ??11 ??minutes. Ragland Bowel Prep Right Colon: 3 ? Transverse Colon: 3 ? Left Colon: 3 ?Total: 9 Findings 9 mm polyp 8 cm from dentate line. ??hot snare polypectomy Diagnosis 9 mm polyp 8 cm from dentate line. ??hot snare polypectomy Recommendations Repeat colonoscopy in 3 years. Follow biopsy results. This electronic signature authenticates all electronic and/or handwritten documentation, including orders, generated by the signer during the episode of care contained in this record. 04/03/2018 11:26:27 AM By Tushar Tyler us Tushar Tyler MD GI PROCEDURE ORDERABLES Final Result documented in this encounter Visit Diagnoses Not on filedocumented in this encounter Administered Medications Inactive Administered Medications - up to 3 most recent administrations Medication Order MAR Action Action Date Dose Rate Site lactated ringers (LR) infusion 30 mL/hr, intravenous, CONTINUOUS, Starting on Sun04/03/18 at 1045, Until Sun04/03/18 at 1423, Routine, Preprocedure New Bag 04/03/2018 10:54 EST 30 mL/hr 30 mL/hr meperidine (PF) (DEMEROL) injection 25-100 mg 25-100 mg, intravenous, ONCE PRN, 1 dose, Starting on Sun04/03/18 at 1024, Until Sun04/03/18 at 1117, Other, sedation, Routine, Intraprocedure Given 04/03/2018 11:17 EST 75 mg midazolam (MDV) (VERSED) injection 1-5 mg 1-5 mg, intravenous, ONCE PRN, 1 dose, Starting on Sun04/03/18 at 1024, Until Sun04/03/18 at 1117, Sedation, Routine, Intraprocedure Given 04/03/2018 11:17 EST 2 mg documented in this encounter Orders Medications Ordered That Cassius ht Not Have Been Administered Count Last Ordered Date First Ordered Date sodium chloride 0.9 % flush 3 mL 1 04/03/19 Transfer Count Last Ordered Date First Orde red Date NOTIFY PPS OF DISCHARGE COMPLETE 1 04/03/19 Discharge Count Last Ordered Date First Orde red Date DISCHARGE PATIENT 1 04/03/2018 documented in this encounter Care Teams Street Roller Engineer Relationship Specialty Start Date End Date Karly Diaz MD [address] [place] [address] PCP - General 08/14/11 documented as of this encounter
--- OUTSIDE RECORDS SUMMARY | 2024-01-09 13:18 | XMS_ITS | Encounter Summary ---
Author Organization [facility] Address [address] [place] [address] Care Team Providers Care Saddle Tree Stitcher Name Role Phone Delmar Diaz MD Primary Care Provider [phone] Reason for Visit * Reason Onset Date Comments Appointment Related 02/07/2016 Encounter Details Date Type Department Care Team (Late st Contact Info) Description 02/07/2016 Telephone [facility] General Surgery - [facility] [address] [place] [address] Daja Garcia, RN [address] [place] [address] Appointment Related Social History Tobacco Use Types [...] Telephone Encounter - Daja Garcia RN - 02/07/2016 1110 EST I have a reminder that the CEA ordered to be done at the visit scheduled with Dr Rodríugez on 11/26/15has not yet been drawn. I have called the patient as his 11/26/15 appointment had been cancelled due to hospitalization at the [facility]. Anna today did reschedule his appointment, he was in the hospital on 11/26/15 due to shingles on the brain. They did not yet reschedule as they were not sure his still abnormal CSF would effect the CEA results. They will keep the new appointment on 03/24/[address] Rodríguez and discuss the CEA with him and if he feels this can be done he can go to the lab after the visit to have it drawn, I will extend the lab order in prism. Anna has acknowledged and has no other questions. documented in this encounter Plan of Treatment Not on file documented as of this encounter Visit Diagnoses Not on filedocumented in this encounter Care Teams Saddle Tree Stitcher Relationship Specialty Start Date End Date Delmar Diaz MD [address] [place] [address] PCP - General 08/14/11 documented as of this encounter
--- OUTSIDE RECORDS SUMMARY | 2024-01-09 13:18 | XMS_ITS | Encounter Summary ---
Author Organization [facility] Address [address] [place] [address] Care Team Providers Care Getter Welder Name Role Phone Delmar Diaz MD Primary Care Provider Reason for Visit * Reason Comments [facility] Encounter Details Date Type Department Care Team (Late st Contact Info) Description 12/19/2013 13:30 EDT Office Visit [facility] General Surgery - [address] [address] Segun Rodríguez MD [address] [facility], [address] [place] [address] Personal history of colon cancer (Primary Dx) Social History [...] Sign Reading Time Taken Comments Blood Pressure 130/78 12/19/2013 1306 EDT Pulse 92 12/19/2013 1306 EDT Temperature - - Respiratory Rate - - Oxygen Saturation - - Inhaled Oxygen Concentration - - Weight 81.2 kg (179 lb) 12/19/2013 1306 EDT Height 177.8 cm (5' 10) 12/19/2013 1306 EDT Body Mass Index 25.68 12/19/2013 1306 EDT documented in this encounter Progress Notes * Segun Rodríguez MD - 12/19/2013 4994 EDT DIVISION OF GENERAL SURGERY PROGRESS / FOLLOWUP NOTE - 12/19/2013 The patient is a 63-year-old gentleman seen in followup for colon cancer. The patient underwent apparently a left colectomy for an obstructing colon cancer at an outside hospital. Subsequently underwent colostomy takedown. He then had a followup colonoscopy and there was aperforation; had a repair of his perforation. He is known to have a ventral hernia, but no signs ofany recurrence. CEAs have been relatively stable. He is 4 years out now. Past medical history, medications, allergies, family and social history all reviewed as of today inPRISM. A 10-point review of systems is positive except for some sutures emanating from the incision. PHYSICAL EXAMINATION: Constitutional examination is normal. Lungs are clear. Cardiac exam is regular rhythm. Abdomen is soft. There is a tiny suture protruding from his midline incision. There is a large ventral hernia, which is nontender and stable. Skin exam reveals no rashes. Groin exam reveals no lymphadenopathy. PROCEDURE: The suture was grasped with a clamp and removed. A large knot is removed. No difficulty,no bleeding. IMPRESSION: Doing well status post resection 4 years ago for colon cancer with postoperative complications. RECOMMENDATION: Check CEA today with colonoscopy and CEA in 1 year. Segun Rodríguez MD, FACS 01 57 PM - Segun Rodríguez MD, FACS mn Dictation ID: [id number] cc: Delmar Diaz MD, [facility] [address], [place] [address] * Segun Rodríguez MD - 12/19/2013 1331 EDT This office note has been dictated. documented in this encounter Plan of Treatment Not on file documented as of this encounter Results * CEA (12/19/2013 13:44 EDT) CEA 2.1 ng/ml [facility] Comment: % Distribution of CEA (ng/ml) 0-2.5 in 98.2% of non-smokers and 87.3% of smokers 2.6-5.0 in 1.8% of non-smokers and 8.0% of smokers 5.1-10.1 in 4.7% of smokers Serum CEA concentration should not be interpreted as absolute evidence for the presence or absence of malignant disease. Assayed utilizing [employer]) chemiluminescent technology. ??Values obtained by using different assay methods cannot be used interchangeably. Blood specimen (specimen) 12/19/2013 13:44 EDT 12/19/2013 14:28 EDT us Segun Rodríguez MD CHEMISTRY & BLOOD GAS ORDERAB LES Final Result Performing Organization Address City/State/[facility] Co de Phone Number [facility] [address] [place] [address] documented in this encounter Visit Diagnoses Diagnosis Personal history of colon cancer- Primary Personal history of malignant neoplasm of large intestine documented in this encounter Care Teams Getter Welder Relationship Specialty Start Date End Date Delmar Diaz MD [address] [place] [address] PCP - General 08/14/11 documented as of this encounter
--- OUTSIDE RECORDS SUMMARY | 2024-01-09 13:18 | XMS_ITS | Encounter Summary ---
Author Organization [facility] Address [address] [place] [address] Care Team Providers Care Knot Borer Name Role Phone Delmar Diaz MD Primary Care Provider [phone] Encounter Details Date Type Department Care Team (Late st Contact Info) Description 12/11/2012 Phlebotomy Only [facility] [address] [place] [address] Water Taxi Captain, Outpatient Colon cancer (CMS-HCC) ([facility]) Social History Tobacco Use Types Packs/Day Years [...] Priority Date/Time Associated Diagnosis Comments CEA Routine 12/11/2012 14:43 EDT Colon cancer (CMS-HCC) ([facility]) documented in this encounter Results * CEA (12/11/2012 14:43 EDT) CEA 2.2 ng/ml [facility] Comment: % Distribution of CEA (ng/ml) 0-2.5 in 98.2% of non-smokers and 87.3% of smokers 2.6-5.0 in 1.8% of non-smokers and 8.0% of smokers 5.1-10.1 in 4.7% of smokers Serum CEA concentration should not be interpreted as absolute evidence for the presence or absence of malignant disease. Assayed utilizing [employer] ([employer]) chemiluminescent technology. ??Values obtained by using different assay methods cannot be used interchangeably. Blood specimen (specimen) 12/11/2012 14:43 EDT 12/11/2012 14:57 EDT Pal Dennis MD CHEMISTRY & BLOOD GAS ORDERABLES Final Result [facility] [address] [place] [address] documented in this encounter Visit Diagnoses Diagnosis Colon cancer (HCC-CMS) Malignant neoplasm of colon, unspecified site documented in this encounter Care Teams Knot Borer Relationship Specialty Start Date End Date Delmar Diaz MD [address] [place] [address] PCP - General 08/14/11 documented as of this encounter
--- OUTSIDE RECORDS SUMMARY | 2024-01-09 13:19 | XMS_ITS | Encounter Summary ---
Author Organization [facility] Address [address] [place] [address] Care Team Providers Care Foreclosure Clerk Name Role Phone Delmar Diaz MD Primary Care Provider [phone] Encounter Details Date Type Department Care Team (Latest Contact Info) Description 05/26/2012 11:07 EDT - 05/26/2012 23:59 EDT Hospital Encounter [address] [address] Pal Dennis MD [address] [place] [address] Discharge Disposition: Home or Self Care Social [...] on file documented as of this encounter Medications at Time of Discharge acetaminophen (TYLENOL) 325 mg tablet Take 325 mg by mouth every 4 hours as needed. ALBUTEROL SULFATE (PROVENTIL INHL) Inhale as directed every 4 hours as needed. calcium carbonate (TUMS) 200 mg calcium (500 mg) Chew Take 1 Tab by mouth 4 times daily as needed. FLAXSEED OIL ORAL Take 1 Tab by mouth daily. Reported on 04/17/2016 Rcvk-Eoar-YGI#1-C -Jioc-Nxh-Crq (OSTEO BI-FLEX) 750-625-30 mg Tab Take by mouth daily. Reported on 04/17/2016 omega-3 fatty acids (FISH OIL CONCENTRATE) 1,000 mg cap capsule Take 1,000 mg by mouth daily. Reported on 04/17/2016 triamterene-hydro chlorothiazide (MAXZIDE) 37.5-25 mg per tablet Take 1 Tab by mouth daily. UNABLE TO FIND daily. Reported on 04/17/2016 documented as of this encounter Discharge Disposition Disposition Code Departure Means Destination Home or Self Prison documented in this encounter Plan of Treatment Not on file documented as of this encounter Visit Diagnoses Not on filedocumented in this encounter Care Teams Foreclosure Clerk Relationship Specialty Start Date End Date Delmar Diaz MD [address] [place] [address] PCP - General 08/14/11 documented as of this encounter
--- OUTSIDE RECORDS SUMMARY | 2024-01-09 13:19 | XMS_ITS | Encounter Summary ---
Author Organization [facility] Address [address] [place] [address] Care Team Providers Care Steam Turbine Assembler Name Role Phone Delmar Diaz MD Primary Care Provider Encounter Details Date Type Department Care Team (Late st Contact Info) Description 12/05/2011 Results Only [facility] Hematology & Oncology - [facility] [address], [place] [address] Marichuy Mohamud MD [address] [facility], [address] [place] [address] Social History Tobacco Use Types Packs/Day Years Used Date Smoking Tobacco: Never Assessed Sex and Gender Information Value Date Recorded Sex Assigned at Not on file Legal Sex Male 18:16 EST Gender Identity Not on file Sexual Orientation Not on file documented as of this encounter Plan of Treatment Not on file documented as of this encounter Procedures Procedure Name Priority Date/Time Associated Diagnosis Comments SURGICAL PATHOLOGY Routine 12/05/2011 0:00 EDT documented in this encounter Results * SURGICAL PATHOLOGY (12/05/2011 0:00 EDT) Pathology Report: SURGICAL PATHOLOGY REPORT Reports generated via electronic interface contain original data; however they are lacking the format of the original report. Caution should be taken when reading/interpreting unformatted reports. Name: ? WANG DUNBAR ? Accession #: ? [id number] ? : ? 1950 (Age: 61) ??M ?Collect Date: ? 12/05/2011 ? Location: ? [facility] ? Receive Date: ? 12/05/2011 ? Provider: MARICHUY MOHAMUD MD Copy to: GREGORY LEHMAN MD ? MISMATCH REPAIR PROTEIN ASSAY (MMR) ? Date Ordered: ? 12/05/2011 ? Status: ?? Signed Out ?Date Complete: ? 12/07/2011 ? By: ??Calista Valencia ? Date Reported: ? 12/07/2011 ? Interpretation Immunohistochemical staining: ??Retained expression of MLH1, PMS2, MSH2 and MSH6 Comment ? These results are indicative of normal DNA mismatch repair function within the tumor. ??This patient most likely does not have an inherited colon cancer syndrome due to defective DNA mismatch repair (Hurst syndrome). ??However, it is important to note that 10% of Hurst syndrome patients may reveal retained expression of mismatch repair proteins due to mutation in genes other than mismatch repair. ??Hence these findings should be interpreted in the context of family and clinical history. ??If results do not match the clinical findings, additional testing should be considered. ??(Dr. Lorenz)/majo Description Tissue submitted: ??Formalin fixed paraffin embedded tissue block from [facility] labelled [id number], block A9 Tumor type: Adenocarcinoma, left colon Test ordered by: Dr. Marichuy Mohamud. ?? Method: ??Immunohistochemical staining is used to determine the presence of protein expression for MLH1 (K824-193, [facility]), PMS2 (MRQ-28, Cell Silas), MSH2 ([id number], Cell Silas), and MSH6 (44, Cell Silas). ??Normal epithelial cells and lymphocytes exhibit strong nuclear staining and serve as positive internal controls for staining of these proteins. NOTE: ??One or more of the reagents used in immunohistochemical testing in this case may not have been cleared or approved by the U.S. Food and Drug Administration (FDA). ??The FDA has determined that such clearance or approval is not necessary. ??These tests are used for clinical purposes. ??They should not be regarded as investigational or for research. ??These reagents' performance characteristics have been determined by [facility]. ??This laboratory is certified under the Clinical Laboratory Improvement Amendments of 1988 (CLIA-88) as qualified to perform high complexity clinical laboratory testing. Document reviewed and electronically signed by: ? CHRIS LORENZ MD ? Report date: 12/07/2011 By the signature above, the attending physician certifies that he/she has personally conducted a gross and/or microscopic examination of the described specimens and rendered or confirmed the above diagnosis. [facility] HURST SYNDROME PANEL ? Date Ordered: ? 12/14/2011 ? Status: ?? Signed Out ?Date Complete: ? 12/27/2011 ? By: ??Candy Golden ? Date Reported: ? 12/27/2011 ? Interpretation Normal immunohistochemical staining for mismatch repair proteins correlates well with the absence of microsatellite instability by PCR. ??The MSI-Stable results (by PCR) indicate a lack of microsatellite instability in the tumor. ??A lack of microsatellite instability would be unusual in colorectal cancers from individuals with Hurst syndrome (HNPCC), although it does not completely excludes this possibility. ??The lack of microsatellite instability does not rule out the possibility of other colon cancer-associated genetic disorders. ??Please correlate with clinical findings to determine whether additional genetic counseling may be warranted. ??(Dr. Lorenz)/mpl Description Tissue submitted: ??Formalin fixed paraffin embedded tissue block labelled [id number], block A9 from [facility], submitted to [facility] for Hurst Syndrome testing. Ordered by: Dr. Marichuy Mohamud Procedure #1: ??Mismatch repair protein immunohistochemical (IHC) staining. Results: ??Retained expression of MLH1, PMS2, MSH2, and MSH6. Method: ??Immunohistochemical staining is used to determine the presence of protein expression for MLH1, PMS2, MSH2, and MSH6. ??Normal epithelial cells and lymphocytes exhibit strong nuclear staining and serve as positive internal controls for staining of these proteins. Procedure #2: ??Microsatellite instability (MSI) PCR Testing. Results: ??MSI -Stable Method: ??Samples from the tumor specimen and normal tissue are amplified by PCR for the five microsatellite markers: ??BAT-25, BAT-26, MONO-27, NR-21, and NR-24. Fluorescently labeled products are detected and sized by capillary electrophoresis. ??Patterns of normal and tumor genotypes are compared for each marker and scored as stable or unstable. This test was developed and its performance characteristics determined by [facility]. ??The U.S. Food and Drug Administration has not approved or cleared this test; however, FDA clearance or approval is not currently required for clinical use. ??The results are not intended to be used as the sole means for clinical diagnosis or patient management decisions. ?? Document reviewed and electronically signed by: ? CHRIS LORENZ MD ? Report date: 12/27/2011 By the signature above, the attending physician certifies that he/she has personally conducted a gross and/or microscopic examination of the described specimens and rendered or confirmed the above diagnosis. End of Report [facility] 12/05/2011 12/05/2011 10: 35 EDT Marichuy Mohamud MD PATHOLOGY ORDERABLES F inal Result [facility] [address] [place] [address] documented in this encounter Visit Diagnoses Not on filedocumented in this encounter Care Teams Steam Turbine Assembler Relationship Specialty Start Date End Date Delmar Diaz MD [address] [place] [address] PCP - General 08/14/11 documented as of this encounter
--- OUTSIDE RECORDS SUMMARY | 2024-01-09 13:19 | XMS_ITS | Encounter Summary ---
Author Organization [facility] Address [address] [place] [address] Care Team Providers Care Adult Health Clinical Nurse Specialist Name Role Phone Delmar Diaz MD Primary Care Provider Encounter Details Date Type Department Care Team (Late st Contact Info) Description 2011 Abstract [facility] General Surgery - [facility] [address] [place] [address] Pal Dennis MD [address] [place] [address] Social History Tobacco Use Types [...] Diagnoses Not on filedocumented in this encounter Historical Medications * This list may reflect changes made after this encounter. calcium carbonate (TUMS) 200 mg calcium (500 mg) Chew Take 1 Tab by mouth 4 times daily as needed. acetaminophen (TYLENOL) 325 mg tablet Take 325 mg by mouth every 4 hours as needed. FLAXSEED OIL ORAL Take 1 Tab by mouth daily. Reported on 04/17/2016 triamterene-hydr ochlorothiazide (MAXZIDE) 37.5-25 mg per tablet Take 1 Tab by mouth daily. ALBUTEROL SULFATE (PROVENTIL INHL) Inhale as directed every 4 hours as needed. UNABLE TO FIND Take 2 Tabs by mouth daily. Flex-a-min 09/27/2011 aspirin chewable 81 mg tablet Take 81 mg by mouth daily. 09/27/2011 Zinc 15 mg Tab Take 15 mg by mouth daily. 09/27/2011 added in this encounter Care Teams Adult Health Clinical Nurse Specialist Relationship Specialty Start Date End Date Delmar Diaz MD [address] [place] [address] PCP - General 08/14/11 documented as of this encounter
--- OUTSIDE RECORDS SUMMARY | 2024-01-09 13:19 | XMS_ITS | Encounter Summary ---
Author Organization [facility] Address [address] [place] [address] Care Team Providers Care Garment Supervisor Name Role Phone Delmar Diaz MD Primary Care Provider Reason for Visit * Reason Onset Date Comments Results 06/11/2012 of cea drawn on 05/26/12. call pt. [phone]. Encounter Details Date Type Department Care Team (Late st Contact Info) Description 06/11/2012 Telephone [facility] Gastroenterology - [facility] [place] [address] [place], [place] [id number] Pal Dennis MD [address] [place] [address] Results (of cea drawn on 05/26/12. call pt. [phone]. ) Social History Tobacco Use Types Packs/Day Years [...] Telephone Encounter - Daja Garcia RN - 06/11/2012 0876 EDT Patient calling today for his CEA results from 05/26/12. Pt CEA 05/26/12 is 1.7 On 01/25/12 CEA was 1.8 I called pt to let him know the above lab results. Pt acknowledged and is pleased. documented in this encounter Plan of Treatment Not on file documented as of this encounter Visit Diagnoses Not on filedocumented in this encounter Care Teams Garment Supervisor Relationship Specialty Start Date End Date Delmar Diaz MD [address] [place] [address] PCP - General 08/14/11 documented as of this encounter
--- OUTSIDE RECORDS SUMMARY | 2024-01-09 13:19 | XMS_ITS | Encounter Summary ---
Author Organization [facility] Address [address] [place] [address] Care Team Providers Care Mold Yard Crane Operator Name Role Phone Delmar Diaz MD Primary Care Provider Encounter Details Date Type Department Care Team (Late st Contact Info) Description 12/05/2011 8:06 EDT - 12/05/2011 8:07 EDT Hospital Encounter [address] [address] Jesus Mohamud MD [address] [facility] [address] [place] [address] Discharge Disposition: Home or Self [...] Tab by mouth daily. Reported on 04/17/2016 Ysit-Alld-UOW#1-C -Vuyp-Pxa-Ycq (OSTEO BI-FLEX) 750-625-30 mg Tab Take by [...] or Self Care documented in this encounter Plan of Treatment Not on file documented as of this encounter Visit Diagnoses Not on filedocumented in this encounter Care Teams Mold Yard Crane Operator Relationship Specialty Start Date End Date Delmar Diaz MD [address] [place] [address] PCP - General 08/14/11 documented as of this encounter
--- OUTSIDE RECORDS SUMMARY | 2024-01-09 13:19 | XMS_ITS | Encounter Summary ---
Author Organization [facility] Address [address] [place] [address] Care Team Providers Care Hose Cementer Name Role Phone Delmar Diaz MD Primary Care Provider Reason for Visit * Reason Onset Date Comments Results 08/27/2012 of cea done 08/07 Encounter Details Date Type Department Care Team (Late st Contact Info) Description 08/27/2012 Telephone [facility] General Surgery - [facility] [address] [place], [place] [id number] Pal Dennis MD [address] [place] [address] Results (of cea done 08/07/12) Social History Tobacco Use Types Packs/Day Years [...] encounter Miscellaneous Notes * Telephone Encounter - Manisha Lozano RN - 08/27/2012 1934 EDT Phone call to patient. He is aware of his CEA results, letter that Dr. Dennis sent was read to him, patient has not received. Patient will call prn. documented in this encounter Plan of Treatment Not on file documented as of this encounter Visit Diagnoses Not on filedocumented in this encounter Care Teams Hose Cementer Relationship Specialty Start Date End Date Delmar Diaz MD [address] [place] [address] PCP - General 08/14/11 documented as of this encounter
--- OUTSIDE RECORDS SUMMARY | 2024-01-09 13:19 | XMS_ITS | Encounter Summary ---
Author Organization [facility] Address [address] [place] [address] Care Team Providers Care Confectionery Cooker Name Role Phone Karly Diaz MD Primary Care Provider [phone] Encounter Details Date Type Department Care Team (Latest Contact Info) Description 01/25/2012 13:40 EST - 01/25/2012 23:59 EST Hospital Encounter [facility] Endoscopy - [facility] [address] [place], [place] [address] Endo, Jeannie Room Discharge Disposition: Home or Self Care Social [...] Tab by mouth daily. Reported on 04/17/2016 Mqzq-Dyuc-TDR#1-C -Vwlz-Nhs-Stj (OSTEO BI-FLEX) 750-625-30 mg Tab Take by [...] Code Departure Means Destination Home or Self Long-Term documented in this encounter Plan of Treatment Not on file documented as of this encounter Procedures Procedure Name Priority Date/Time Associated Diagnosis Comments REFERRAL TEST 1 Routine 01/25/2012 12:05 EST SURGICAL PATHOLOGY Routine 01/25/2012 0:00 EST documented in this encounter Results * REFERRAL TEST 1 (01/25/2012 12:05 EST) Test Name COLONext [facility] Result See Pathology Scanned Report in [facility] Comment: (Note) ColoNext: ??Analysis of 14 Genes Associated with Hereditary Colon Cancer Panel Results ??CDH1 Variant, Unknown Significance: ??[id number] Summary Inconclusive: ??Variant Detected Test performed by: [facility] [address] [place] [id number] Ref Lab [facility] Date Sample Shipped 01/25/2012 [facility] 01/25/2012 12:0 5 EST 01/25/2012 12:31 EST Jesus Mohamud MD LAB INFO SERVICE AND S UPPORT & PHONE RESULT Final Result [facility] [address] [place] [address] * SURGICAL PATHOLOGY (01/25/2012 0:00 EST) Pathology Report: SURGICAL PATHOLOGY REPORT Reports generated via electronic interface contain original data; however they are lacking the format of the original report. Caution should be taken when reading/interpreti ng unformatted reports. Name: ? MANJINDER, WANG J ? Accession #: ? [id number] ? : ? 1950 (Age: 61) ??M ? Collect Date: ? 01/25/2012 ? Location: ? ENDOP ? Receive Date: ? 01/25/2012 ? Provider: DONELL DENNIS MD Copy to: KARLY DIAZ MD ? Final Pathologic Diagnosis: A. ?Colon, anastomosis, biopsy: 1. ?Polypoid granulation tissue. 2. ? Negative for dysplasia. B. ?Rectum, polyp, biopsy: 1. ?Hyperplastic polyp. Document reviewed and electronically signed by: JOSE C WOOD MD Report ??Date: 01/29/2012 15:21 By the signature above, the attending physician certifies that he/she has personally conducted a gross and/or microscopic examination of the described specimens and rendered or confirmed the above diagnosis. Specimen(s) Received: A. ?Anastomosis B. ? Rectal polyp Clinical History: ? Granulation tissue at old anastomosis Gross Description: ? Received in formalin labelled Manjinder, Wang and biopsy of anastomosis site are three pink-almonte irregular soft tissues ranging from 0.1 x 0.1 x 0.1 cm to 0.3 x 0.2 x 0.2 cm. ??Submitted in toto as (A). Received in formalin labelled Manjinder, Wang and rectal polyp is a single 0.2 x 0.1 x 0.1 cm pink-almonte irregular soft tissue. ??Submitted in toto as (B). ([facility]/majo End of Report [facility] 01/25/2012 01/25/2012 14: 58 EST us Donell Dennis MD PATHOLOGY ORDERABLES Final Resul t [facility] [address] [place] [address] documented in this encounter Visit Diagnoses Not on filedocumented in this encounter Care Teams Confectionery Cooker Relationship Specialty Start Date End Date Karly Diaz MD [address] [place] [address] PCP - General 08/14/11 documented as of this encounter
--- OUTSIDE RECORDS SUMMARY | 2024-01-09 13:19 | XMS_ITS | Encounter Summary ---
Author Organization [facility] Address [address] [place] [address] Care Team Providers Care Distance Education Faculty Liaison Name Role Phone Delmar Diaz MD Primary Care Provider [phone] Encounter Details Date Type Department Care Team (Late st Contact Info) Description 01/29/2012 Documentation Visit [facility] General Surgery - [facility] [address] [place] [address] Pal Dennis MD [address] [place] [address] Social History Tobacco Use Types [...] encounter Progress Notes * Pal Dennis - 01/29/2012 1551 EST DIVISION OF GENERAL SURGERY January 29, 2012 Wang Acevedo [address] [facility] [address] [address] Dear Mr Acevedo: I am happy to let you know that the polyps we removed from your colon were completely benign. Please let me know if you have any questions in this regard. Sincerely, Electronically Signed by Pal Dennis MD, FACS 01/30/2012 07:18 Manjit Dennis MD, [phone] H Hyman, MD, FACS - Pal Dennis MD, FACS - CB Job ID: SM Doc ID: [id number] Ext Doc ID: [id number] cc: The Patient documented in this encounter Plan of Treatment Not on file documented as of this encounter Visit Diagnoses Not on filedocumented in this encounter Care Teams Distance Education Faculty Liaison Relationship Specialty Start Date End Date Delmar Diaz MD [address] [place] [address] PCP - General 08/14/11 documented as of this encounter
--- OUTSIDE RECORDS SUMMARY | 2024-01-09 13:19 | XMS_ITS | Encounter Summary ---
Author Organization [facility] Address [address] [place] [address] Care Team Providers Care Drafter Landscape Name Role Phone Delmar Diaz MD Primary Care Provider Encounter Details Date Type Department Care Team (Late st Contact Info) Description 01/25/2012 Phlebotomy Only [facility] [address] [place] [address] Content Strategy Lead, Outpatient Social History Tobacco Use Types Packs/Day Years [...] on filedocumented in this encounter Care Teams Drafter Landscape Relationship Specialty Start Date End Date Delmar Diaz MD [address] [place] [address] PCP - General 08/14/11 documented as of this encounter
--- OUTSIDE RECORDS SUMMARY | 2024-01-09 13:19 | XMS_ITS | Continuity of Care Document ---
Author Organization [place] [facility] Address [address] [place] [address] Care Team Providers Care Flagsetter Name Role Phone MYRNAMARICHUY Dentist Assessment No assessment recorded. Plan of Treatment Reminders Order Date Submit Date Provider Last Modified By Organization Details Last Modified Time Details Appointments Follow Up 2023 11:30A M KARLY DIAZ Not available Not available Not available Follow Up 2024 11:30A M KARLY DIAZ Not available Not available Not available Lab None recorded . Referral None recorded . Procedures None recorded . Surgeries None recorded . Imaging None recorded . Medication Orders None recorded . Patient TargetsNo targets recorded. Patient InstructionsNo instructions recorded. Reason for Referral None Reported. Results Created Date Observation Date Name Description Value Unit Range Abnormal Flag Note LastModifiedBy Organization Detail LastModifiedTime 11/12/19 24 03/07/2022 XR, shoul maribel, 2 or more view No observ ation record ed. [email or web address] Not Available 11/11 10:34:58 11/12/19 24 05/22/2020 MRI, knee, w/o contr ast No observ ation record ed. [email or web address] Not Available 11/11 10:34:59 11/12/19 24 03/07/2022 XR, shoul maribel No observ ation record ed. [email or web address] Not Available 11/11 10:35:13 11/12/19 24 07/28/2020 imagi ng/di agnos tic resul t No observ ation record ed. [email or web address] Not Available 11/11 10:35:29 Result Notes None recorded. Problems Name Problem SNOMED Code Status Onset Date Resolution Date Notes Provider Name and Address Organization Details Recorded Time Hyperlip idemia 98524999 Active [address], [place], [address] , [facility] 4 11:58:09 Parkinso nism 57032532 Active [address], [facility] [address] , [facility] 4 12:20:04 Consciou sness and/or awarenes s finding 646803220 Active [address], [facility] [address] , [facility] 4 12:20:04 Postproc edural state finding 876259953 Active 2009 Problem Code: Z98.89; Problem Code Type: ICD-10; Not Available [facility] 3 05:15:06 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 No signs of eye damage. Problem Code: G90.2; Problem Code Type: ICD-10; Not Available [facility] 3 05:15:07 Acute kidney injury 06767154 Completed 201503/16/2016 Problem Code: N17.9; Problem Code Type: ICD-10; Not Available [facility] 3 05:15:07 Encephal itis 84957083 Active 201507/29/19 21 - Comments only - Karly Diaz MD - Largely recovere d except for some persiste nt cranial nerve deficits , see HPI Problem Code: G05.3; Problem Code Type: ICD-10; Not Available [facility] 3 05:15:07 Onychomy cosis due to dermatop hyte 849061361 Active 201604/20/19 17 - Comments only - Karly Diaz MD - R second toe - reviewed options and he declines rx. nail care. Problem Code: B35.1; Problem Code Type: ICD-10; Not Available [facility] 3 05:15:07 Acquired right hallux valgus 28120545577 4106 Active 2016 Problem Code: M20.11; Problem Code Type: ICD-10; Not Available [facility] 3 05:15:08 Hordeolu m externum of left eyelid 13193392480 9104 Completed 201606/09/2016 Problem Code: H00.016; Problem Code Type: ICD-10; Not Available [facility] 3 05:15:08 History of malignan t neoplasm of colon 243949903 Active 2016 Problem Code: Z85.038; Problem Code Type: ICD-10; Not Available [facility] 3 05:15:08 Acute lower respirat ory tract infectio n 023590097 Completed 201709/25/2017 08/15/19 18 - Comments only - Lucien Vegas PA-C - Suspect viral etiology . Patient is improvin g. Continue symptoma tic care. Recheck if worse or does not continue to improve. Problem Code: J22; Problem Code Type: ICD-10; Not Available [facility] 3 05:15:08 Hammer toe 180944217 Active 201710/20/19 18 - Comments only - Karly Diaz MD - Think the real cause of his pain is the abnormal weightbe aring caused by his hammerto e deformit y. He will probably need a custom orthotic , and within a few more years and might even consider surgery. For now she will try soaking the nails, make sure he is wearing shoes with plenty of space. Refer to Dr. Munson Problem Code: M20.40; Problem Code Type: ICD-10; Not Available [facility] 3 05:15:08 Bunion 307487701 Active 2017 Problem Code: M21.611; Problem Code Type: ICD-10; Not Available [facility] 3 05:15:08 Hemorrho ids 69540574 Active 2017 Problem Code: K64.9; Problem Code Type: ICD-10; Not Available [facility] 3 05:15:09 Adult health examinat ion Active 2018 Problem Code: Z00.00; Problem Code Type: ICD-10; Not Available [facility] 3 05:15:09 Counseli ng Active 2018 Problem Code: Z71.89; Problem Code Type: ICD-10; Not Available [facility] 3 05:15:09 Tremor 14321658 Active 202003/27/19 23 - Comments only - Karly Diaz MD - Unchange d Problem Code: G25.2; Problem Code Type: ICD-10; Not Available [facility] 3 05:15:09 Arterial malforma tion 115767282 Active 202009/24/19 22 - Comments only - Karly Diaz MD - Ultimate ly did not have surgery and this has not been giving him problems . Problem Code: Q25.8; Problem Code Type: ICD-10; Not Available [facility] 3 05:15:10 Exposure to communic able disease Completed 202011/03/2020 Problem Code: Z20.828; Problem Code Type: ICD-10; Not Available [facility] 3 05:15:10 Knee joint prosthes is present 67602518003 2 Active 07/09/19 22 -lior plummer Z96.653; Problem Code Type: ICD-10; KARLY DIAZ MD [address], [place], [address] , [facility] 4 12:18:04 Disturba nce of salivary secretio n 88396294 Active 202110/26/19 23 - Comments only - Karly Diaz MD - He has become somewhat more adept at managing this. Problem Code: K11.7; Problem Code Type: ICD-10; Not Available [facility] 3 05:15:10 Non-trau matic tendon rupture 526080529 Active 202112/21/19 22 - Comments only - Arlette GAY - discusse d conserva tive treatmen t. rx for naproxen 500mg with food BID for 7 days only. offered referral to orthoped ics or PT but he declines for now. He knows to call if he changes his mind. Problem Code: M66.821; Problem Code Type: ICD-10; Not Available [facility] 3 05:15:11 Idiopath ic osteoart hritis 137076345 Active 2021 Problem Code: M19.011; Problem Code Type: ICD-10; Not Available [facility] 3 05:15:11 Hyperten sive disorder 39359883 Completed 201211/22/2022 Not Available [facility] 3 05:15:18 Impotenc e Completed 201011/22/2022 Not Available [facility] 3 05:15:24 Pain of right shoulder joint 81757331627 004478 Completed 202111/22/2022 Problem Code: M25.511; Problem Code Type: ICD-10; Not Available [facility] 3 05:15:25 Acute bronchos pasm 65044852585 100 Completed 201004/20/2017 Problem Code: J98.01; Problem Code Type: ICD-10; Not Available [facility] 3 05:15:26 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 201504/25/2018 Problem Code: G51.0; Problem Code Type: ICD-10; Not Available [facility] 3 05:15:27 Pain in limb 85913986 Completed 201404/20/2017 Problem Code: M79.609; Problem Code Type: ICD-10; Not Available [facility] 3 05:15:29 Nausea and vomiting 78693387 Completed 201504/20/2017 Problem Code: R11.2; Problem Code Type: ICD-10; Not Available [facility] 3 05:15:30 Actinic keratosi s 716735351 Active [address], [facility] [address] , [facility] 4 13:26:09 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 Hemicolectomy 11/18/09, Colon Ca *ICD-10 Codes: *Problem Status: inactive *Comments: *Note Date: 11/29/2009 *Problem Name: Rare Broncospasm *ICD-10 Codes: *Problem Status: inactive *Comments: *Note Date: 12/07/2010 *Problem Name: Colon Polyp 2002 *ICD-10 Codes: *Problem Status: inactive *Comments: *Problem Code Type: CPT *Note Date: 11/12/2009 *Problem Name: Fh Colon Cancer, Gene Testing Neg *ICD-10 Codes: *Problem Status: inactive *Comments: *Problem Code Type: CPT *Note Date: 06/30/2005 *Problem Name: Allergic Phinitis *Problem Status: inactive *Comments: *Problem Code: 472 *Problem Code Type: ICD- 9 *Note Date: 10/08/2003 Problem Notes None recorded. Medical Equipment None Reported. Medications Name Sig Start Date Stop Date Status Note LastModified by Organization Details LastModified Time Prescript ion - Renewal 11/18 completed ProAir HFA 90 mcg/actu ation HFA aerosol inhaler Not Available Not Available Not Available losartan 50 mg tablet Take 1 tablet by mouth once a day 2023 active Not Available Not Available Not Avai lable Refresh Tears 0.5 % eye drops 1-2 drops in left eyes every 4 hour as needed for dry eyes. 10/23 completed [facility] discharg e Not Available Not Available Not Available glycopyrr olate 1 mg tablet Take one tab three times per day if needed for drooling 03/27 completed Not Available Not Available Not Available Tums 500 mg (as calcium carbonate 1,250 mg) chewable tablet PRN 02/10 completed Not Available Not Available Not Available ibuprofen 800 mg tablet Take 1 by mouth three times daily, take with food. 12/14 completed Not Available Not Available Not Available valacyclo vir 1 gram tablet Take 1 tab, three times a day 02/17 completed Not Available Not Available Not Available ondansetr on HCl 8 mg tablet Take 1 tab by mouth every 8 hours as needed for nausea 01/02 completed Not Available Not Available Not Available lisinopri l 20 mg tablet 1tab day 07/08 completed Not Available Not Available Not Available ondansetr on HCl 4 mg tablet 1 tab every 8 hours for nausea 12/13 completed [facility] Not Available Not Available Not Available naproxen 250 mg tablet 2 q12h prn 06/06 completed Not Available Not Available Not Available amlodipin e 2.5 mg tablet Take 1 tab by mouth daily 11/29 completed Not Available Not Available Not Available Reglan 10 mg tablet 1 TAB qid 01/27 completed Not Available Not Available Not Available triamtere ne 37.5 mg-hydroc hlorothia zide 25 mg capsule Take 1 cap by mouth daily 2023 active Not Available Not Available Not Avai lable Ilotycin 5 mg/gram (0.5 %) eye ointment apply to l eyelid tid 10/23 completed Not Available Not Available Not Available cephalexi n 500 mg capsule Take 4 capsule by mouth as directed Take 4 capsules 1 hour prior to dental procedur e. 2021 active for dental procedur es Not Available Not Available Not Available E-Z Spacer 1INH daily 12/14 completed Not Available Not Available Not Available docusate sodium 100 mg capsule 1 CAP BID 06/06 completed Not Available Not Available Not Available gabapenti n 300 mg capsule Take 1 cap twice daily 2015 active [facility] Not Available Not Available Not Available triamtere ne 37.5 mg-hydroc hlorothia zide 25 mg tablet 1 tablet by mouth once a day 2017 active Not Available Not Available Not Avai lable cephalexi n 500 mg tablet 1TAB QID 01/24 completed Not Available Not Available Not Available gabapenti n 100 mg capsule Take 1 cap twice daily 04/20 completed [facility] Not Available Not Available Not Available Garamycin 0.3 % eye drops 2 GTTS four times daily 09/11 completed Not Available Not Available Not Available fluticaso ne propionat e 50 mcg/actua tion nasal spray,josh pension 2 sprays each nostril daily 11/28 completed [facility] discharg e Not Available Not Available Not Available naproxen 500 mg tablet Take 1 tablet by mouth twice a day Take with food 12/27 completed Not Available Not Available Not Available amoxicill in 875 mg-potass ium clavulana te 125 mg tablet Take 1 tab by mouth twice daily 11/14 completed [facility] Not Available Not Available Not Available Glucosami ne-Chondr otin 250 mg-200 mg tablet 1tab qd 11/28 completed Not Available Not Available Not Available Flax Seed Oil 1,000 mg capsule 1TBS qd 05/01 completed Not Available Not Available Not Available Dry Eye Relief 1 %-0.2 %-0.2 % drops Administ er 1 drop into both eyes twice a day active Similasa n Dry Eye Relief- otc Not Available Not Available Not Available Proventil 2 PUFFS Q4H,PRN 2011 active Not Available Not Available Not Avai lable Albuterol Sulfate HFA 2 PUFFS Q4H,PRN 04/04 completed Not Available Not Available Not Available ProAir HFA 90 mcg/actua tion aerosol inhaler Inhale 1-2 puff by mouth every four to six hours as needed 2016 active Not Available Not Available Not Avai lable Osteo Bi-Flex 2 tabs by mouth daily 2017 active Not Available Not Available Not Avai lable Paxlovid 300 mg (150 mg x 2)-100 mg tablets in a dose pack Take 3 tablet by mouth twice a day for 5 days 09/28 completed Not Available Not Available Not Available Vitals None Recorded Social History None recorded. Functional Status None recorded. Mental Status None recorded. Family History Relationship Description Onset Age of this Age Resolved Age Notes LastModified by Organization Details LastModified Time Mother Family history of cancer of colon [email or web address] Not available 2022 03:54:43 Father Family history of heart failure [email or web address] Not available 2022 03:54:43 Notes:*Problem: mother of colon cancer, father having had an MD in his 70s. Sibs have no cancer or heart disease 06/27/05 FAMILY HX: Father at age 87 of heart disease. Mother at age 38, had colon cancer. He has 3 sibs that are well.Bro - htn. Eufemia MD. Medical History No medical history recorded. Immunizations Vaccine Type Date Status Provider Name and Address Organization Details Recorded Time COVID-19, mRNA, LNP-S, PF, rfansisco-sucrose, 30 mcg/0.3 mL 11/28/2023 completed Joseph Simeon RN null, [facility] 11/28/2023 08:06:08 Influenza, high-dose, trivalent, PF 11/28/2023 completed Joseph Simeon RN null, [facility] 11/28/2023 08:06:08 Td (adult), 2 Lf tetanus toxoid, preservative free, adsorbed 04/20/2017 completed Not Available [facility] 01/05/2023 06:16:39 Tdap 07/10/2007 completed Not Available [facility] 06:16:39 Novel [id number], all formulations 01/06/2009 completed Not Available [facility] 01/05/2023 06:16:39 Pneumococcal conjugate PCV 13 04/20/2017 completed Not Available [facility] 01/05/2023 06:16:39 Td(adult) unspecified formulation 11/26/1997 completed Not Available [facility] 01/05/2023 06:16:39 Influenza, split virus, trivalent, preservative 12/07/2014 completed Not Available [facility] 01/05/2023 06:16:39 Influenza, split virus, trivalent, preservative 01/10/2016 completed Not Available [facility] 01/05/2023 06:16:39 Influenza, split virus, quadrivalent, preservative 12/12/2017 completed Not Available [facility] 01/05/2023 06:16:39 Influenza, split virus, quadrivalent, preservative 12/18/2016 completed Not Available [facility] 01/05/2023 06:16:39 Influenza, high-dose, quadrivalent, PF 11/16/2021 completed [facility] Available [facility] 01/05/2023 06:16:39 Influenza, high-dose, quadrivalent, PF 11/24/2019 completed Not Available [facility] 01/05/2023 06:16:40 COVID-19, mRNA, LNP-S, PF, 100 mcg/0.5mL dose or 50 mcg/0.25mL dose 04/07/2020 completed Not Available [facility] 01/05/2023 06:16:40 COVID-19, mRNA, LNP-S, PF, 100 mcg/0.5mL dose or 50 mcg/0.25mL dose 06/10/2021 completed Not Available [facility] 01/05/2023 06:16:40 SARS-COV-2 (COVID-19) vaccine, UNSPECIFIED 05/05/2020 completed Not Available [facility] 01/05/2023 06:16:40 SARS-COV-2 (COVID-19) vaccine, UNSPECIFIED 12/28/2020 completed Not Available [facility] 01/05/2023 06:16:40 pneumococcal polysaccharide PPV23 10/09/2008 completed Not Available [facility] 2022 06:16:40 influenza, unspecified formulation 01/15/2019 completed Not Available [facility] 01/05/2023 06:16:40 Influenza, high-dose, quadrivalent, PF 12/11/2022 completed Not Available [facility] 03/09/2023 05:31:35 COVID-19, mRNA, LNP-S, PF, fransisco-sucrose, 30 mcg/0.3 mL 12/11/2022 completed Not Available [facility] 03/09/2023 05:31:35 Past Encounters Encounter ID Performer Location Encounter Start Date Encounter Closed Date Diagnosis/Indication Diagnosis SNOMED-CT Code Diagnosis ICD10 Code [id number] Joseph Simeon RN [address] [address] 11/28/2023 07:43:58 11/28/2023 08:00:42 Active or passive immunization 371186542 Z23 Health Concerns Section Related Observation LastModified by Organization Detai ls LastModified Time None Recorded Concern Status LastModified by Organization Details LastModified Time None Recorded Payers Encounter Date Sequence Insurance Name Policy Number Policy Key Covered Member ID Key Member ID Guarantor Name 11/28/2023 1 MED[place]ARE [place]: [employer] Wang Acevedo [id number] Wang Acevedo 11/28/2023 2 [place] [id number] Wang Acevedo [id number] Wang Acevedo
--- OUTSIDE RECORDS SUMMARY | 2024-01-09 13:19 | XMS_ITS | Encounter Summary ---
Author Organization [facility] Address [address] [place] [address] Care Team Providers Care Liquid Fertilizer Servicer Name Role Phone Delmar Diaz MD Primary Care Provider [phone] Reason for Visit * Reason Comments Genetic Evaluation Encounter Details Date Type Department Care Team (Late st Contact Info) Description 11/24/2011 12:00 EDT Office Visit [facility] Hematology & Oncology - [facility] [address], [place] [phone] Unknown, Provider, MD Mohamud, Jesus Keating MD [address] [facility] [place] [address] Mckenna Waters, [place] [address] [place], [place] [id number] Genetic counseling and testing (Primary Dx); Malignant neoplasm of colon, unspecified part of colon (HCC-CMS); Family history of cancer Social History Tobacco Use Types Packs/Day Years Used Date Smoking Tobacco: Never Assessed Sex and Gender Information Value Date Recorded Sex Assigned at Not on file Legal Sex Male 18:16 EST Gender Identity Not on file Sexual Orientation Not on file documented as of this encounter Progress Notes * Mckenna Waters, MS - 11/24/[address] Mohamud's note from same day encounter documented in this encounter Plan of Treatment Not on file documented as of this encounter Visit Diagnoses Diagnosis Genetic counseling and testing- Primary Genetic counseling Malignant neoplasm of colon, unspecified part of colon (HCC-CMS) Family history of cancer Family history of unspecified malignant neoplasm documented in this encounter Care Teams Liquid Fertilizer Servicer Relationship Specialty Start Date End Date Delmar Diaz MD [address] [place] [address] PCP - General 08/14/11 documented as of this encounter
--- OUTSIDE RECORDS SUMMARY | 2024-01-09 13:19 | XMS_ITS | Encounter Summary ---
Author Organization [facility] Address [address] [place] [address] Care Team Providers Care Customer Service And Sales Consultant Name Role Phone Delmar Diaz MD Primary Care Provider [phone] Reason for Visit * Reason Onset Date Comments Other 12/04/[address] Dennis wanted him to have. Encounter Details Date Type Department Care Team (Late st Contact Info) Description 12/04/2011 Telephone [facility] General Surgery - Main [place] [address] [place], [place] [phone] Pal Dennis MD [address] [place] [address] Other (questions about testing Dr. Dennis wanted him to have.) Social History Tobacco Use Types Packs/Day Years Used Date Smoking Tobacco: Never Assessed Sex and Gender Information Value Date Recorded Sex Assigned at Not on file Legal Sex Male 18:16 EST Gender Identity Not on file Sexual Orientation Not on file documented as of this encounter Miscellaneous Notes * Telephone Encounter - Sandy Lomas RN - 12/06/[address] Dennis and pt should have colonoscopy. He is sched for 01/24. Pt aware. * Telephone Encounter - Sandy Lomas RN - 12/04/2011 1110 EDT Pt calls to request Dr Dennis's input. He went to see Dr Mohamud and Mckenna London for genetic counseling. At this meeting Dr Mohamud recommended repeat colonoscopy. Last colo was 09/05. Pt was under the impression from Dr Dennis that he would not require this. Will review and f/u with pt. documented in this encounter Plan of Treatment Not on file documented as of this encounter Visit Diagnoses Not on filedocumented in this encounter Care Teams Customer Service And Sales Consultant Relationship Specialty Start Date End Date Delmar Diaz MD [address] [place] [address] PCP - General 08/14/11 documented as of this encounter
--- OUTSIDE RECORDS SUMMARY | 2024-01-09 13:19 | XMS_ITS | Encounter Summary ---
Author Organization [facility] Address [address] [place] [address] Care Team Providers Care Furnace Room Supervisor Name Role Phone Delmar Diaz MD Primary Care Provider [phone] Reason for Visit * Reason Onset Date Comments Other 10/04/2011 PT CALLED TO SAY SOMEONE CALLING HIS HOME EVERYDAY. IF DR. DENNIS CALLED HAVE HIM TRY CELL.CALL PT. Encounter Details Date Type Department Care Team (Late st Contact Info) Description 10/04/2011 Telephone [facility] General Surgery - [facility] [address] [place] [address] Pal Dennis MD [address] [place] [id number] Other (PT CALLED TO SAY SOMEONE CALLING HIS HOME EVERYDAY. IF DR. DENNIS CALLED HAVE HIM TRY CELL.CALL PT.) Social History Tobacco Use Types Packs/Day Years Used Date Smoking Tobacco: Never Assessed Sex and Gender Information Value Date Recorded Sex Assigned at Not on file Legal Sex Male 18:16 EST Gender Identity Not on file Sexual Orientation Not on file documented as of this encounter Miscellaneous Notes * Telephone Encounter - Manisha Lozano RN - 10/04/2011 0917 EDT Phone call to patient. Aware that Dr. Dennis was trying to get in touch, but patient has spoke with CHESTER Hamm since. He may be getting a call from another department. He asked about the genetics counselor, wanted number to call. Reviewed letter that Dr. Dennis wrote, Mckenna Waters was noted, number given to patient. documented in this encounter Plan of Treatment Not on file documented as of this encounter Visit Diagnoses Not on filedocumented in this encounter Care Teams Furnace Room Supervisor Relationship Specialty Start Date End Date Delmar Diaz MD [address] [place] [address] PCP - General 08/14/11 documented as of this encounter
--- OUTSIDE RECORDS SUMMARY | 2024-01-09 13:19 | XMS_ITS | Encounter Summary ---
Author Organization [facility] Address [address] [place] [address] Care Team Providers Care Skip Loader Name Role Phone Delmar Diaz MD Primary Care Provider [phone] Reason for Visit * Reason Onset Date Comments Results 09/28/2011 OF BLOODWORK DON E ON 09/27/11. CALL PT. Encounter Details Date Type Department Care Team (Late st Contact Info) Description 09/28/2011 Telephone [facility] General Surgery - [place] [address] [place], [place] [id number] Pal Dennis MD [address] [place] [address] Results (OF BLOODWORK DONE ON 09/27/11. CALL PT. ) Social History Tobacco Use Types Packs/Day Years Used Date Smoking Tobacco: Never Assessed Sex and Gender Information Value Date Recorded Sex Assigned at Not on file Legal Sex Male 18:16 EST Gender Identity Not on file Sexual Orientation Not on file documented as of this encounter Miscellaneous Notes * Telephone Encounter - Sandy Lomas RN - 09/28/2011 1129 EDT Pt calls to review CEA results. Pt aware level down to 2.1 and no further testing required per Dr Dennis. Pt states understanding and will call with any further questions or concerns. documented in this encounter Plan of Treatment Not on file documented as of this encounter Visit Diagnoses Not on filedocumented in this encounter Care Teams Skip Loader Relationship Specialty Start Date End Date Delmar Diaz MD [address] [place] [address] PCP - General 08/14/11 documented as of this encounter
--- OUTSIDE RECORDS SUMMARY | 2024-01-09 13:19 | XMS_ITS | Encounter Summary ---
Author Organization [facility] Address [address] [place] [address] Care Team Providers Care Metal Or Wood Blocker Name Role Phone Delmar Diaz MD Primary Care Provider [phone] Encounter Details Date Type Department Care Team (Late st Contact Info) Description 09/27/2011 Documentation Visit [facility] General Surgery - [facility] [address] [place], [place] [address] Pal Dennis MD [address] [place] [address] Social History Tobacco Use Types Packs/Day Years Used Date Smoking Tobacco: Never Assessed Sex and Gender Information Value Date Recorded Sex Assigned at Not on file Legal Sex Male 18:16 EST Gender Identity Not on file Sexual Orientation Not on file documented as of this encounter Progress Notes * Pal Dennis - 09/27/2011 1407 EDT DIVISION OF GENERAL SURGERY September 27, 2011 WANG DUNBAR [address] [place] [address] Dear Mr. Dunbar: I am delighted to let you know that your CEA blood test, the test for recurrent cancer, has returned to normal. As I mentioned at the time of the visit, it is not particularly uncommon to have an isolated bump in this level. It is a great relief to see this come back to normal. I would recommend that you see me in the office in 3 months for routine followup. We would repeat the CEA at that time. Hopefully, you also have a visit scheduled to see Mckenna Waters by now to discuss genetic evaluation. I presume that you will have this information by the time you receive this letter. I did try to give you a call at home several times today. Sincerely, Electronically Signed by Pla Dennis MD, FACS 09/27/2011 16:39 Manjit Dennis MD, [id number] H Hyman, MD, FACS - Pal Dennis MD, FACS - FMJennfier Job ID: SM Doc ID: [id number] Ext Doc ID: [id number] cc: documented in this encounter Plan of Treatment Not on file documented as of this encounter Visit Diagnoses Not on filedocumented in this encounter Care Teams Metal Or Wood Blocker Relationship Specialty Start Date End Date Delmar Diaz MD [address] [place] [address] PCP - General 08/14/11 documented as of this encounter
--- OUTSIDE RECORDS SUMMARY | 2024-01-09 13:19 | XMS_ITS | Encounter Summary ---
Author Organization [facility] Address [address] [place] [address] Care Team Providers Care School Psychological Examiner Name Role Phone Delmar Diaz MD Primary Care Provider [phone] Encounter Details Date Type Department Care Team (Late st Contact Info) Description 05/26/2012 Phlebotomy Only [facility] [address] [place] [address] Gripper Machine Operator, Outpatient History of colon cancer Social History Tobacco Use [...] Priority Date/Time Associated Diagnosis Comments CEA Routine 05/26/2012 11:11 EDT History of colon cancer documented in this encounter Results * CEA (05/26/2012 11:11 EDT) CEA 1.7 ng/ml [facility] Comment: % Distribution of CEA (ng/ml) 0-2.5 in 98.2% of non-smokers and 87.3% of smokers 2.6-5.0 in 1.8% of non-smokers and 8.0% of smokers 5.1-10.1 in 4.7% of smokers Serum CEA concentration should not be interpreted as absolute evidence for the presence or absence of malignant disease. Assayed utilizing Siemens ([employer]) chemiluminescent technology. ??Values obtained by using different assay methods cannot be used interchangeably. Blood specimen (specimen) 05/26/2012 11:11 EDT 05/26/2012 12:40 EDT Pal Dennis MD CHEMISTRY & BLOOD GAS ORDERABLES Final Result Performing Organization Address City/State/[facility] Co de Phone Number [facility] [address] [place] [address] documented in this encounter Visit Diagnoses Diagnosis History of colon cancer Personal history of malignant neoplasm of large intestine documented in this encounter Care Teams School Psychological Examiner Relationship Specialty Start Date End Date Delmar Diaz MD [address] [place] [address] PCP - General 08/14/11 documented as of this encounter
--- OUTSIDE RECORDS SUMMARY | 2024-01-09 13:19 | XMS_ITS | Encounter Summary ---
Author Organization [facility] Address [address] [place] [address] Care Team Providers Care Tile Machine Operator Name Role Phone Delmar Diaz MD Primary Care Provider [phone] Reason for Visit * Reason Onset Date Comments Other 11/27/2011 CORY Davis UESTJENNIFER Other 11/29/2011 cory davis ubarry Encounter Details Date Type Department Care Team (Late st Contact Info) Description 11/27/2011 Telephone [facility] Cancer Center Hematology & Oncology - [facility] [address] [place], [place] [id number] Jesus Mohamud MD [address] [facility], [address] [place] [address] Other (CORY LONDON QUESTIONS); Other (cory London questions) Social History Tobacco Use Types Packs/Day Years Used Date Smoking Tobacco: Never Assessed Sex and Gender Information Value Date Recorded Sex Assigned at Not on file Legal Sex Male 18:16 EST Gender Identity Not on file Sexual Orientation Not on file documented as of this encounter Miscellaneous Notes * Telephone Encounter - Sandy Robledo - 11/29/2011 0088 EDT Agustin calling back he hasn't heard from anyone about cpt code & Jt billing. Please call * Telephone Encounter - Maira Arora - 11/27/2011 1028 EDT Needs cpt code for genetic testing. Also wants to know if Cory London will also be billing for appt or will it just be a Dr visit. documented in this encounter Plan of Treatment Not on file documented as of this encounter Visit Diagnoses Not on filedocumented in this encounter Care Teams Tile Machine Operator Relationship Specialty Start Date End Date Delmar Diaz MD [address] [place] [address] PCP - General 08/14/11 documented as of this encounter
--- OUTSIDE RECORDS SUMMARY | 2024-01-09 13:19 | XMS_ITS | Encounter Summary ---
Author Organization [facility] Address [address] [place] [address] Care Team Providers Care Armored Car Driver Name Role Phone Delmar Diaz MD Primary Care Provider [phone] Encounter Details Date Type Department Care Team (Late st Contact Info) Description 09/27/2011 Phlebotomy Only [facility] [address] [place] [address] Electronic Data Interchange Specialist, Outpatient Colon cancer ([facility]) ([facility]) Social History Tobacco Use Types Packs/Day Years [...] Priority Date/Time Associated Diagnosis Comments CEA Routine 09/27/2011 10:35 EDT Colon cancer ([facility]) ([facility]) documented in this encounter Results * CEA (09/27/2011 10:35 EDT) CEA 2.1 ng/ml [facility] Comment: % Distribution of CEA (ng/ml) 0-2.5 in 98.2% of non-smokers and 87.3% of smokers 2.6-5.0 in 1.8% of non-smokers and 8.0% of smokers 5.1-10.1 in 4.7% of smokers Serum CEA concentration should not be interpreted as absolute evidence for the presence or absence of malignant disease. Assayed utilizing Siemens ([employer]) chemiluminescent technology. ??Values obtained by using different assay methods cannot be used interchangeably. Blood specimen (specimen) 09/27/2011 10:35 EDT 09/27/2011 10:34 EDT us Pal Dennis MD CHEMISTRY & BLOOD GAS ORDERABLES Final Result Performing Organization Address City/State/[facility] Co de Phone Number [facility] [address] [place] [address] documented in this encounter Visit Diagnoses Diagnosis Colon cancer (HCC-CMS) Malignant neoplasm of colon, unspecified site documented in this encounter Care Teams Armored Car Driver Relationship Specialty Start Date End Date Delmar Diaz MD [address] [place] [address] PCP - General 08/14/11 documented as of this encounter
--- OUTSIDE RECORDS SUMMARY | 2024-01-09 13:19 | XMS_ITS | Encounter Summary ---
Author Organization [facility] Address [address] [place] [address] Care Team Providers Care Facility Maintenance Worker Name Role Phone Delmar Diaz MD Primary Care Provider [phone] Encounter Details Date Type Department Care Team (Late st Contact Info) Description 05/21/2012 Orders Only [facility] General Surgery - [facility] [address] [place], [place] [address] Pal Dennis MD [address] [place] [address] History of colon cancer (Primary Dx) Social [...] as of this encounter Results * CEA (05/26/2012 11:11 [...] absence of malignant disease. Assayed utilizing Siemens ([employer]) chemiluminescent technology. ??Values obtained by using different assay methods cannot be used interchangeably. Blood specimen (specimen) 05/26/2012 11:11 EDT 05/26/2012 12:40 EDT Pal Dennis MD CHEMISTRY & BLOOD GAS ORDERABLES Final Result Performing Organization Address City/State/[facility] Co de Phone Number [facility] [address] [place] [address] documented in this encounter Visit Diagnoses Diagnosis History of colon cancer- Primary Personal history of malignant neoplasm of large intestine documented in this encounter Care Teams Facility Maintenance Worker Relationship Specialty Start Date End Date Delmar Diaz MD [address] [place] [address] PCP - General 08/14/11 documented as of this encounter
--- OUTSIDE RECORDS SUMMARY | 2024-01-09 13:19 | XMS_ITS | Encounter Summary ---
Author Organization [facility] Address [address] [place] [address] Care Team Providers Care Warp Spinner Name Role Phone Delmar Diaz MD Primary Care Provider Reason for Visit * Reason Onset Date Comments Results 06/12/2012 Encounter Details Date Type Department Care Team (Late st Contact Info) Description 06/12/2012 Telephone [facility] Cancer Center Hematology & Oncology - [facility] [address] [place], [place] [id number] Mckenna Waters, [address] [place] [address] Results Social History Tobacco Use Types Packs/Day Years [...] encounter Miscellaneous Notes * Telephone Encounter - Mckenna Waters MS - 06/12/2012 1028 EDT Spoke to Steve regarding his genetic test results. Steve was dx with colon cancer at age 59 and has a strong maternal family history of malignancy. Initially his tumor was tested with IHC at [facility] to screenfor Perdomo syndrome. All 4 mismatch repair proteins expressed, suggesting low likelihood of LS. Due to the strong history, Steve pursued a multi - gene panel test through [facility]. 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 CDH1 is a gene associated with hereditary diffuse gastric cancer. As there is not enough data to know whether this variant is associated with cancer risk or not, it cannot be used in assessing additional cancer risks for Al or his family. At this time, future cancer risks are based on the family history, as are screening recommendations. Steve has been recommended to continue with 3 year f/u colonoscopies and we agree with this. We also recommend that his son initiate colonoscopy screening between the ages of 35-40 on an every 3-5 year basis. We recommend that his siblings have f/u colonoscopies every 3-5 years as well. Al will call back with any new family history or with questions/concerns regarding our discussions. documented in this encounter Plan of Treatment Not on file documented as of this encounter Visit Diagnoses Not on filedocumented in this encounter Care Teams Warp Spinner Relationship Specialty Start Date End Date Delmar Diaz MD [address] [place] [address] PCP - General 08/14/11 documented as of this encounter
--- OUTSIDE RECORDS SUMMARY | 2024-01-09 13:19 | XMS_ITS | Encounter Summary ---
Author Organization [facility] Address [address] [place] [address] Care Team Providers Care Hands And Dial Inspector Name Role Phone Delmar Diaz MD Primary Care Provider [phone] Reason for Visit * Reason Comments New Patient Visit Colon Cancer Encounter Details Date Type Department Care Team (Late st Contact Info) Description 09/27/2011 10:00 EDT Office Visit [facility] General Surgery - [facility] [address] [place], [place] [address] Pal Dennis MD [address] [place] [address] Colon cancer (CMS-HCC) (HCC-CMS) (Primary [...] Sign Reading Time Taken Comments Blood Pressure 130/88 09/27/2011 0913 EDT Pulse 67 09/27/2011 09 EDT Temperature - - Respiratory Rate - - Oxygen Saturation - - Inhaled Oxygen Concentration - - Weight 82.1 kg (181 lb) 09/27/2011 0913 EDT Height 177.8 cm (5' 10) 09/27/2011 09 EDT Body Mass Index 25.97 09/27/2011 0913 EDT documented in this encounter Progress Notes * Pal Dennis - 09/27/2011 0943 EDT This office note has been dictated. documented in this encounter Consult Notes * Pal Dennis - 09/27/2011 1049 EDT DIVISION OF GENERAL SURGERY CONSULTATION - 09/27/2011 PROBLEM: History of colon cancer, elevated CEA. SUBJECTIVE: Mr Acevedo is a 61-year-old man who was sent by Dr Diaz for my opinion on the management of an elevated CEA in the context of previous colon resection. Mr Acevedo tells me he had a colonoscopy in 2006 that was normal. 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 Two months later, he had takedown of his colostomy and did quite well. He had a T3N0 lesion with 9negative nodes, if I recall correctly from my chart review. Owing to stage II disease, he did not receive chemotherapy. He subsequently had followup colonoscopy. It appears that he had some granulation tissue at his colostomy takedown site as well as a separate tubular adenoma resected. He developed signs and symptomsof a perforation and was taken to the operating room. From Mr Acevedo's description, it sounds like he just had repair of the perforation site. He returned with a postoperative colocutaneous fistula that ultimately resolved with nonoperative management. At present, he basically has an asymptomatic ventral hernia. He no longer has any discharge from his wound. He did have a local procedure, evidently to remove some sutures from the abdominal wall. Jazmin has one little suture that he notices but it really does not bother him. Most recently, he had a CEA drawn that was 4.2. This was a rise and he and his are understandably very concerned about this. In light of all these issues, he comes for my opinion on management. He tends to have one bowel movement a day. He has not had blood in the stool or recent change in stool caliber. He has not had weight loss. PAST MEDICAL HISTORY: Remarkable for arthritis in his knee, mild hypertension and mild reactive airway disease. PAST SURGICAL HISTORY: Includes the multiple procedures described above related to his obstructing colon cancer as well as knee surgery. Of note, his mother at age 38 from colon cancer. On her side, he has several aunts and uncles who have had colon cancer. SOCIAL HISTORY: He does not smoke. He does not drink. He works in car sales and service. MEDICATIONS: Supplements are meds are reviewed and updated in [facility]. REVIEW OF SYSTEMS: A 13-point review of systems is otherwise negative. There is no major cardiopulmonary morbidity. There is no tendency towards easy bleeding. OBJECTIVE: He is well appearing. The sclerae are nonicteric. Heart exam reveals a regular rate and rhythm. The lungs are clear. On abdominal exam, he has a rather large ventral hernia. There are no masses. There is no tenderness. The tip of a single suture is visualized and is trimmed back. There is no extremity edema. His preoperative CEA was 6.5. His postoperative CEAs have ranged between 1.8 to 2.5. The most recent CEA is 4.2. He had a colonoscopy last January that revealed no evidence of metastatic disease. His extensive notes and records are reviewed. ASSESSMENT: 1. Single elevated CEA in a man who had resection for a stage II carcinoma. We discussed this at length and we will pursue this. 2. Asymptomatic incisional hernia. 3. The family history is strongly suggestive of HNPCC; further, the short interval from negative colonoscopy to colon cancer is also suggestive. I think making diagnosis would have very significant implications potentially for his followup and certainly for his family. PLAN: 1. We will repeat a CEA today. If it is back to normal, that would be great. However, if there is aconfirmed rise in the CEA, I explained that we would first obtain a CT of the chest, abdomen and pelvis to look for metastatic disease. That could be arranged either back home or here at his convenience. He will call us tomorrow for the result. If the CEA is elevated, he understands that we would arrange the CAT scan. If the CT was negative, then I explained the potential next steps would be colonoscopy and/or a PETscan. 2. We talked about potentially a binder for the hernia, but he is content just to leave things be. Certainly that is fine. 3. 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 Electronically Signed by Pal Dennis MD, FACS 09/27/2011 11:12 Pal Dennis MD, FACS [phone] - Pal Dennis MD, FACS - [facility] Job ID: Doc ID: [id number] Ext Doc ID: [id number] cc: Mckenna London, MD Isaac Padilla MD documented in this encounter Plan of Treatment Not on file documented as of this encounter Results * CEA (09/27/2011 10:35 EDT) CEA 2.1 ng/ml [facility] Comment: % Distribution of CEA (ng/ml) 0-2.5 in 98.2% of non-smokers and 87.3% of smokers 2.6-5.0 in 1.8% of non-smokers and 8.0% of smokers 5.1-10.1 in 4.7% of smokers Serum CEA concentration should not be interpreted as absolute evidence for the presence or absence of malignant disease. Assayed utilizing [employer] ([employer]) chemiluminescent technology. ??Values obtained by using different assay methods cannot be used interchangeably. Blood specimen (specimen) 09/27/2011 10:35 EDT 09/27/2011 10:34 EDT us Pal Dennis MD CHEMISTRY & BLOOD GAS ORDERABLES Final Result [facility] [address] [place] [address] documented in this encounter Visit Diagnoses Diagnosis Colon cancer (HCC-CMS)- Primary Malignant neoplasm of colon, unspecified site documented in this encounter Discontinued Medications Medication Sig Discontinue Reason Start Date End Da te aspirin chewable 81 mg tablet Take 81 mg by mouth daily. Patient Stopped Taking 09/27/2011 UNABLE TO FIND Take 2 Tabs by mouth daily. Flex-a-min Alternate therapy 09/27/2011 Zinc 15 mg Tab Take 15 mg by mouth daily. Patient Stopped Taking 09/27/2011 documented as of this encounter Historical Medications * This list may reflect changes made after this encounter. omega-3 fatty acids (FISH OIL CONCENTRATE) 1,000 mg cap capsule Take 1,000 mg by mouth daily. Reported on 04/17/2016 UNABLE TO FIND daily. Reported on 04/17/2016 Acie-Daaw-RIH#1-C -Ihym-Vfk-Ftw (OSTEO BI-FLEX) 750-625-30 mg Tab Take by mouth daily. Reported on 04/17/2016 added in this encounter Care Teams Hands And Dial Inspector Relationship Specialty Start Date End Date Delmar Diaz MD [address] [place] [address] PCP - General 08/14/11 documented as of this encounter
--- OUTSIDE RECORDS SUMMARY | 2024-01-09 13:19 | XMS_ITS | Encounter Summary ---
Author Organization [facility] Address [address] [place] [address] Care Team Providers Care Clerk Of Superior Court Name Role Phone Delmar Diaz MD Primary Care Provider Encounter Details Date Type Department Care Team (Late st Contact Info) Description 08/07/2012 Phlebotomy Only [facility] [address] [place] [address] Keller Machine Operator, Outpatient Colon cancer (CMS-HCC) ([facility]) Social History Tobacco Use Types Packs/Day Years [...] Priority Date/Time Associated Diagnosis Comments CEA Routine 08/07/2012 9:31 EDT Colon cancer (CMS-HCC) ([facility]) documented in this encounter Results * CEA (08/07/2012 9:31 EDT) CEA 2.2 ng/ml [facility] Comment: % Distribution of CEA (ng/ml) 0-2.5 in 98.2% of non-smokers and 87.3% of smokers 2.6-5.0 in 1.8% of non-smokers and 8.0% of smokers 5.1-10.1 in 4.7% of smokers Serum CEA concentration should not be interpreted as absolute evidence for the presence or absence of malignant disease. Assayed utilizing [employer] ([employer]) chemiluminescent technology. ??Values obtained by using different assay methods cannot be used interchangeably. Blood specimen (specimen) 08/07/2012 9:31 EDT 08/07/2012 9:45 EDT Pal Dennis MD CHEMISTRY & BLOOD GAS ORDERABLES Final Result [facility] [address] [place] [address] documented in this encounter Visit Diagnoses Diagnosis Colon cancer (HCC-CMS) Malignant neoplasm of colon, unspecified site documented in this encounter Care Teams Clerk Of Superior Court Relationship Specialty Start Date End Date Delmar Diaz MD [address] [place] [address] PCP - General 08/14/11 documented as of this encounter
--- OUTSIDE RECORDS SUMMARY | 2024-01-09 13:19 | XMS_ITS | Encounter Summary ---
Author Organization [facility] Address [address] [place] [address] Care Team Providers Care Laboratory Technologist Name Role Phone Delmar Diaz MD Primary Care Provider Encounter Details Date Type Department Care Team (Late st Contact Info) Description 01/25/2012 Documentation Visit [facility] General Surgery - [facility] [address] [place], [place] [id number] Pal Dennis MD [address] [place] [address] Social History Tobacco Use Types [...] encounter Progress Notes * Pal Dennis - 01/25/2012 1416 EST DIVISION OF GENERAL SURGERY January 25, 2012 Delmar Diaz MD [address] Diaz: On 01/25/2012, Wang Acevedo underwent a full colonoscopy to the cecum and into the ileum in light of his history of colon cancer. He is now over two years after his colectomy. His anastomosis was widely patent. He had 2 mounds of granulation tissue at the anastomosis that we biopsied, but I do notthink they are of concern. He had a small rectal polyp we removed. Everything otherwise looked normal. I have obtained a CEA blood test and he will see me back in the office in 6 months. He is in the midst of a genetic evaluation by my colleague, Dr Mohamud. The interval for followup colonoscopy will largely be based on the outcome of this analysis. I will keep you posted as things evolve. Sincerely, Electronically Signed by Pal [place] MD, FACS 01/26/2012 08:12 Manjit [place] MD, [phone] H Hyman, MD, FACS - Pal [place] MD, FACS - CD Job ID: SM Doc ID: [id number] Ext Doc ID: [id number] cc: Delmar Diaz MD documented in this encounter Plan of Treatment Not on file documented as of this encounter Visit Diagnoses Not on filedocumented in this encounter Care Teams Laboratory Technologist Relationship Specialty Start Date End Date Delmar Diaz MD [address] [place] [address] PCP - General 08/14/11 documented as of this encounter
--- OUTSIDE RECORDS SUMMARY | 2024-01-09 13:19 | XMS_ITS | Encounter Summary ---
Author Organization [facility] Address [address] [place] [address] Care Team Providers Care Customer Service Analyst Name Role Phone Delmar Diaz MD Primary Care Provider [phone] Reason for Visit * Reason Comments Follow-up 6 month f/u colo 23/02 hx colon cancer Encounter Details Date Type Department Care Team (Late st Contact Info) Description 08/07/2012 8:45 EDT Office Visit [facility] General Surgery - [facility] [address] [place] [address] Pal Dennis MD [address] [place] [phone] Colon cancer (CMS-HCC) (HCC-CMS) (Primary Dx) Social [...] encounter Progress Notes * Pal Dennis - 08/08/2012 0148 EDT DIVISION OF GENERAL SURGERY August 07, 2012 Dear Mr Acevedo: I am happy to let you know that your CEA blood test, the test for current cancer, continues to be completely normal. The absolute value was 2.2. This is very much in the range of the previous numbers. Please let me know if you have any questions in this regard. Sincerely, Electronically Signed by Pal [place] MD, FACS 08/08/2012 07:07 Manjit [place] MD, [phone] H Hyman, MD, FACS - Pal [place] MD, FACS - NTS Job ID: SM Doc ID: [id number] Ext Doc ID: [id number] cc: * Pal Dennis - 08/07/2012 2223 EDT DIVISION OF GENERAL SURGERY PROGRESS/FOLLOWUP NOTE - 08/07/2012 PROBLEM: History of colon cancer. SUBJECTIVE: Mr Acevedo will be 3 years after his colectomy in November. He really is feeling very well. He has had no abdominal pain, bleeding or change in stool caliber. Interval medical history is unremarkable. He was seen by Dr Mohamud and Mckenna Waters. He had normal mismatch repair of gene protein expression in his tumor. However, he had a genetic panel obtained and there is an equivocal finding with respect to one of the genes. The significance is uncertain and he has had communication in this regard. His ventral hernia remains asymptomatic. He does have a little discharge from one of the old suturesites periodically. OBJECTIVE: He looks well. The sclerae are nonicteric. The heart exam reveals a regular rate and rhythm. The abdomen is benign. He has a large ventral hernia. There are a couple of scabbed over areas.He does sometimes see suture coming through these areas. His consultations and notes and records are reviewed. ASSESSMENT: 1. Over 2-1/2 years out without evidence of recurrence. The time course and expectations in this regard were reviewed. 2. Asymptomatic ventral hernia. 3. Spits an occasional Prolene suture that causes a little stitch abscess. If these were protruding, they could certainly be removed under local anesthesia. PLAN: 1. Check CEA. 2. I will see him back in 4 months with another CEA. 3. If everything is okay at that time, then I think his followup could be deferred for a year. 4. He would be due for his next followup colonoscopy in 2014. Electronically Signed by Pal [place] MD, FACS 08/14/2012 10:42 Pal Dennis MD, FACS [phone] - Pal Dennis MD, FACS - [facility] Job ID: SM Doc ID: [id number] Ext Doc ID: [id number] cc: MD Delmar Jackson MD * Pal Dennis - 08/07/2012 0900 EDT This office note has been dictated. documented in this encounter Plan of Treatment Not on file documented as of this encounter Results * CEA (08/07/2012 9:31 EDT) CEA 2.2 ng/ml [facility] Comment: % Distribution of CEA (ng/ml) 0-2.5 in 98.2% of non-smokers and 87.3% of smokers 2.6-5.0 in 1.8% of non-smokers and 8.0% of smokers 5.1-10.1 in 4.7% of smokers Serum CEA concentration should not be interpreted as absolute evidence for the presence or absence of malignant disease. Assayed utilizing Siemens (Serus) chemiluminescent technology. ??Values obtained by using different assay methods cannot be used interchangeably. Blood specimen (specimen) 08/07/2012 9:31 EDT 08/07/2012 9:45 EDT Pal [place] MD CHEMISTRY & BLOOD GAS ORDERABLES Final Result [facility] [address] [place] [address] documented in this encounter Visit Diagnoses Diagnosis Colon cancer (HCC-CMS)- Primary Malignant neoplasm of colon, unspecified site documented in this encounter Historical Medications * This list may reflect changes made after this encounter. aspirin chewable 81 mg tablet Take 81 mg by mouth every 48 hours. Reported on 04/17/2016 KRILL OIL ORAL Take by mouth daily. Reported on 04/17/2016 added in this encounter Care Teams Customer Service Analyst Relationship Specialty Start Date End Date Delmar Diaz MD [address] [place] [id number] PCP - General 08/14/11 documented as of this encounter
--- OUTSIDE RECORDS SUMMARY | 2024-01-09 13:19 | XMS_ITS | Encounter Summary ---
Author Organization [facility] Address [address] [place] [address] Care Team Providers Care Stitchdown Toe Former Name Role Phone Delmar Diaz MD Primary Care Provider Reason for Visit * Reason Onset Date Comments Results 12/29/2011 Encounter Details Date Type Department Care Team (Late st Contact Info) Description 12/29/2011 Telephone [facility] Hematology & Oncology - [facility] [address] [place], [place] [id number] Mckenna Waters, MS [address] [place] [address] Results Social History Tobacco Use Types Packs/Day Years Used Date Smoking Tobacco: Never Assessed Sex and Gender Information Value Date Recorded Sex Assigned at Not on file Legal Sex Male 18:16 EST Gender Identity Not on file Sexual Orientation Not on file documented as of this encounter Miscellaneous Notes * Telephone Encounter - Mckenna Waters, MS - 12/29/2011 1616 EDT Spoke to Mr. Acevedo regarding tumor testing for Perdomo syndrome - both IHC and MSI testing were normal, suggesting low likelihood of Perdomo syndrome. A copy of these results were sent to Mr. Acevedo. Wediscussed additional genetic testing in the form of a cancer panel including many genes associated with colon cancer. We have submitted a pre-verification to determine if his insurance will cover this testing. If they will cover, Mr. Acevedo is interested in going forward with testing to determine if he has a heritable form or colon cancer. documented in this encounter Plan of Treatment Not on file documented as of this encounter Visit Diagnoses Not on filedocumented in this encounter Care Teams Stitchdown Toe Former Relationship Specialty Start Date End Date Delmar Diaz MD [address] [place] [address] PCP - General 08/14/11 documented as of this encounter
--- OUTSIDE RECORDS SUMMARY | 2024-01-09 13:19 | XMS_ITS | Encounter Summary ---
Author Organization [facility] Address [address] [place] [address] Care Team Providers Care Health Services Coordinator Name Role Phone Delmar iDaz MD Primary Care Provider Encounter Details Date Type Department Care Team (Latest Contact Info) Description 01/25/2012 12:11 EST - 01/25/2012 13:39 EST Hospital Encounter [facility] Endoscopy Outpatient [address] [place] [address] Pal Dennis MD [address] [place] [address] Discharge Disposition: Home or Self [...] Sign Reading Time Taken Comments Blood Pressure 145/93 01/25/2012 1242 EST Pulse - - Temperature 36 ??C (96.8 ??F) 01/25/2012 1242 EST Respiratory Rate 16 01/25/2012 1242 EST Oxygen Saturation 97% 01/25/2012 1242 EST Inhaled Oxygen Concentration - - Weight 81.2 kg (179 lb) 01/25/2012 1238 EST Height 177.8 cm (5' 10) 01/25/2012 1238 EST Body Mass Index 25.68 01/25/2012 1238 EST documented in this encounter Medications at [...] Tab by mouth daily. Reported on 04/17/2016 [id number]#1-C -Bawo-Wde-Ldm (OSTEO BI-FLEX) 750-625-30 mg Tab Take by [...] Code Departure Means Destination Home or Self [facility] documented in this encounter H&P Notes * Pal Dennis - 01/25/2012 1352 EST Sedation for Procedure History & Physical Date: 01/25/2012 Time: 13:52 Location: [address] Planned Procedure: Colonoscopy Chief Complaint/Indications for Procedure: hx of colon ca History Previous Complication with Sedation and/or Anesthesia? No Allergies: No Known Allergies Current Medications: (Not in a hospital admission) Past Medical History: Past Medical History Diagnosis Date ??? Colon polyp 2002/2009 ??? Colon cancer 2006 ??? Allergic rhinitis ??? Spasm of bronchus 12/07/10 Social History: Past Surgical History Procedure Date ??? Colon surgery 09/21/2010 2010 Repair of colon perforation ??? Colectomy 11/18/2009 11/29/09 Left Hemicolectomy History Substance Use Topics ??? Smoking status: Never Smoker ??? Smokeless tobacco: Not on file ??? Alcohol Use: No Family History: Family History Problem Relation Age of Onset ??? Colon Cancer Mother 30 Review of Systems as pertinent: Physical Exam Vital Signs: BP 145/93 Temp(Src) 36 ??C (96.8 ??F) (Tympanic) Resp 16 Ht 177.8 cm (70) Wt 81.194 kg (179 lb) BMI 25.68 kg/m2 SpO2 97% Heart Examination: Cardiac Regularity: Regular Respiratory Examination: Respiratory Pattern: Regular Breath Sounds Right: Clear Breath Sounds Left: Clear Additional physical exam related to the proposed procedure, patient activity, disease state and treatment as pertinent: Assessment Previous complications with sedation or anesthesia?: No Airway Concerns: None Anesthesia Classification: ASA 2 Fasting Time: Time of last liquid intake: 0530 Date of Last Liquid Intake: 01/25/12 Time of last solid intake: 1800 Date of last solid intake: 01/23/12 Patient Appropriate Candidate for Planned Sedation?: Yes documented in this encounter Procedure Notes * INDUSTRIAL HIRE SALES ASSISTANT, SCAN 2 - 01/26/2012 0036 ESTAssociated Order(s): PROCEDURE REPORTS - SCANNED documented in this encounter Miscellaneous Notes * Scanned Note-Null - INDUSTRIAL HIRE SALES ASSISTANT, SCAN 2 - 01/26/2012 0904 EST * Scanned Note-Null - INDUSTRIAL HIRE SALES ASSISTANT, SCAN 2 - 01/26/2012 0904 EST documented in this encounter Plan of Treatment Not on file documented as of this encounter Procedures Procedure Name Priority Date/Time Associated Diagnosis Comments PROCEDURE REPORTS - SCANNED 01/26/2012 0:36 EST CEA Routine 01/25/2012 13:55 EST documented in this encounter Results * PROCEDURE REPORTS - SCANNED (01/26/2012 0:36 EST) 01/26/2012 0:36 EST Narrative 01/26/2012 2:13 EST Procedure Note INDUSTRIAL HIRE SALES ASSISTANT, SCAN 2 - 01/26/2012 0:36 EST us Scan 2 Upscale Security Officer PROCEDURE/MINOR SURGICAL OR DERABLES Final Result * CEA (01/25/2012 13:55 EST) CEA 1.8 ng/ml [facility] Comment: % Distribution of CEA (ng/ml) 0-2.5 in 98.2% of non-smokers and 87.3% of smokers 2.6-5.0 in 1.8% of non-smokers and 8.0% of smokers 5.1-10.1 in 4.7% of smokers Serum CEA concentration should not be interpreted as absolute evidence for the presence or absence of malignant disease. Assayed utilizing TapPress (AgilOne) chemiluminescent technology. ??Values obtained by using different assay methods cannot be used interchangeably. Blood specimen (specimen) 01/25/2012 13:55 EST 01/25/2012 15:39 EST Pal Dennis MD CHEMISTRY & BLOOD GAS ORDERABLES Final Result [facility] [address] [place] [address] documented in this encounter Visit Diagnoses Not on filedocumented in this encounter Administered Medications Inactive Administered Medications - up to 3 most recent administrations Medication Order MAR Action Action Date Dose Rate Site lactated ringers (LR) infusion 30 mL/hr, intravenous, CONTINUOUS, Starting on Milena 01/25/12 at 1300, Until 01/27/12 at 0504, Routine, Preprocedure New Bag 01/25/2012 13:04 EST 30 mL/hr 30 mL/hr meperidine (PF) (DEMEROL) 100 mg/mL injection 25-200 mg 25-200 mg, intravenous, ONCE PRN, 1 dose, Starting on Milena 01/25/12 at 1235, Until Milena 01/25/12 at 1355, Other, sedation, Routine, Intraprocedure Given 01/25/2012 13:55 EST 75 mg midazolam (VERSED) injection 1-10 mg 1-10 mg, intravenous, ONCE PRN, 1 dose, Starting on Milena 01/25/12 at 1235, Until Milena 01/25/12 at 1355, Sedation, Routine, Intraprocedure Given 01/25/2012 13:55 EST 2 mg documented in this encounter Orders Discharge Count Last Ordered Date First Orde red Date DISCHARGE PATIENT 1 01/25/2012 documented in this encounter Care Teams Health Services Coordinator Relationship Specialty Start Date End Date Delmar Diaz MD [address] [place] [address] PCP - General 08/14/11 documented as of this encounter
--- OUTSIDE RECORDS SUMMARY | 2024-01-09 13:19 | XMS_ITS | Encounter Summary ---
Author Organization [facility] Address [address] [place] [address] Care Team Providers Care Respiratory Care Assistant Name Role Phone Delmar Diaz MD Primary Care Provider [phone] Reason for Visit * Reason Onset Date Comments Other 01/31/2012 Returning call t o nurse regarding possible colo results. Encounter Details Date Type Department Care Team (Late st Contact Info) Description 01/31/2012 Telephone [facility] General Surgery - [facility] [place] [address] [place], [place] [id number] Pal Dennis MD [address] [place] [address] Other (Returning call to nurse regarding possible colo results. ) Social History Tobacco Use Types Packs/Day [...] Telephone Encounter - Manisha Lozano RN - 01/31/2012 1104 EST Phone call to patient. Spoke with . She stated patient is all set, they called for an appointment. aware that the message I received was about his colonoscopy results. Aware that a letter was mailed by Dr. Dennis, they should receive soon. Will call prn. documented in this encounter Plan of Treatment Not on file documented as of this encounter Visit Diagnoses Not on filedocumented in this encounter Care Teams Respiratory Care Assistant Relationship Specialty Start Date End Date Delmar Diaz MD [address] [place] [address] PCP - General 08/14/11 documented as of this encounter
--- OUTSIDE RECORDS SUMMARY | 2024-01-09 13:19 | XMS_ITS | Encounter Summary ---
Author Organization [facility] Address [address] [place] [address] Care Team Providers Care Drum Tender Name Role Phone Delmar Diaz MD Primary Care Provider Reason for Visit * Reason Comments Genetic Evaluation Encounter Details Date Type Department Care Team (Late st Contact Info) Description 11/24/2011 13:00 EDT Office Visit [facility] Hematology & Oncology - [address] [address] Jesus Mohamud MD [address] [place] [address], [facility] [address] [place] [address] Colon cancer (CMS-HCC) (HCC-CMS) (Primary Dx); Genetic counseling and testing; Family history of colon cancer Social History Tobacco Use Types Packs/Day Years Used Date Smoking Tobacco: Never Assessed Sex and Gender Information Value Date Recorded Sex Assigned at Not on file Legal Sex Male 18:16 EST Gender Identity Not on file Sexual Orientation Not on file documented as of this encounter Progress Notes * Jesus Mohamud MD - 11/27/2011 0846 EDT DIVISION OF HEMATOLOGY / ONCOLOGY NEW PATIENT EVALUATION - 11/24/2011 PROBLEMS: 1. Colon cancer. a. Diagnosis 2009. b. Stage T3N0. c. Histopathology showing tumor infiltrating lymphocytes and Crohn's like appearance, question Perdomo syndrome. 2. Family history of colon and other cancers, question Perdomo syndrome. CHIEF COMPLAINT: Wang Acevedo is seen at the request of Dr Pal Dennis to discuss whether genetic factors may play a role in his personal and family history of cancer. HISTORY OF PRESENT ILLNESS: Mr Acevedo had a first colonoscopy in his 50s and was found to have polyps. He first had a virtual colonoscopy in [place], which showed 3 polyps. A followup colonoscopy could identify two of them and remove them. Several followup colonoscopies in subsequent years identified one additional polyp. However, he then developed constipation and a partial obstruction from what turned out to be a transverse left-sided colon cancer in October 2009. He had surgery and did not have adjuvant chemotherapy. He ended up having complications of a perforated colonoscopy and fistulaand eventually came down to Dr Pal Dennis for a second opinion regarding surgical issues and to discuss frequency of colonoscopies. Dr Dennis referred him to us to discuss the genetic issues. There has been subsequent polyp identified. In general, he is otherwise pretty well. No other major medical illnesses. He has had tonsil surgery and knee surgery as well as his colon surgery. FAMILY HISTORY: Mother of colon cancer at age 38. Mother's parents lived into their 80s with no cancer. Mother had 3 siblings with cancer and 3 siblings without cancer, only one remains alive atage 84 and she has never had cancer to his knowledge, although she has had bowel surgery. There is a mother's sister with breast cancer in her 60s, mother's brother with prostate cancer in his 60s and lived to his 70s, and mother's brother who had cancer of an uncertain type, he does not know much about this, he just has heard about it from his aunt. On his mother's side, she lived to age 85 and of heart disease. She had 6 siblings with no cancers and his maternal grandparents lived to oldage with no cancer. SOCIAL HISTORY: He is and has a son who is 37 years old. His was a patient of mine years ago in follow up from what turned out to have been a T- cell lymphoma in her 20s. There is a family history of cancer on her side, but no recognizable syndrome. 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 Never smoked cigarettes. Does not drink alcoholic beverages. OBJECTIVE: Performance status equals 0. He looks well and is not examined in detail. Pathology reports are reviewed and confirm the T3N0 cancer and confirm multiple adenomatous polyps. ASSESSMENT: One hour was taken up with counseling regarding the possibility of genetics playing a role in his cancer. Mr Acevedo had a colon cancer in the context of a family history that does not immediately meet criteria for Perdomo syndrome, but is suggestive. The clincher would be whether this cancer in the his uncle is Perdomo-associated cancer or not. If it is, then this meets [place] criteria, and the chances of this being Perdomo syndrome are 85% or more. If his uncle's cancer is not a Perdomo-associated cancer, then the chances of this being Perdomo syndrome would be probably in the 20 to 30% range. We discussed that the approach to diagnosing Perdomo syndrome is based on doing studies of the mismatch repair proteins in the colon tumors. He is agreeable to doing this, and we will obtain his tumor blocks from [facility] in [place] to study for immunohistochemistry for mismatch repair proteins. If they are abnormal, then we will proceed with genetic testing. If they are normal, then we probably would proceed with testing of the DNA pattern to see if microsatellite instability is present. If microsatellite instability is normal and immunohistochemistry is normal, then this is not Perdomo syndrome. We discussed a few other things. We discussed the use of aspirin as a preventative measure. In cases of colon cancer, aspirin has been shown to reduce the risk of a polyp recurrence. In cases of diagnosed Perdomo syndrome, aspirin has been shown to reduce the risk of colon and other cancers. The optimal dose of aspirin is not known. The Perdomo syndrome study used 600 mg and the polyp study used 325 mg. It is possible that 81 mg is also had an adequate dose. We discussed that the risk of aspirin therapy would be gastric irritation and GI bleeding. He recently had a CEA that was slightly elevated at 4.0 and then a repeat was down to 2.1. I think an appropriate interval now, 2 years since his surgery, would be about 4 months to recheck his CEA. He is due for colonoscopy because he has not had one in over a year and he will contact Dr Dennis for that. Will call back after the results of the tumor testing are done to proceed with either genetic testing or not. Electronically Signed by Jesus Mohamud MD 02/16/2012 18:11 Jesus Mohamud MD Hematology / Oncology Attending - Jesus Mohamud MD - AN Job ID: SM Doc ID: [id number] Ext Doc ID: [id number] cc: Pal [place] MD, FACS MD Isaac Grewal MD documented in this encounter Miscellaneous Notes * Scanned Note-Null - MR TEACHER, SCAN 2 - 06/19/2012 0911 EDT documented in this encounter Plan of Treatment Not on file documented as of this encounter Visit Diagnoses Diagnosis Colon cancer (HCC-CMS)- Primary Malignant neoplasm of colon, unspecified site Genetic counseling and testing Genetic counseling Family history of colon cancer Family history of malignant neoplasm of gastrointestinal tract documented in this encounter Care Teams Drum Tender Relationship Specialty Start Date End Date Delmar Diaz MD [address] [place] [address] PCP - General 08/14/11 documented as of this encounter
[2024-01-09 20:01] LABS: Anion Gap 8.2 mmol/L (3-11); BUN 26 mg/dL (7-18); CO2 29.8 mmol/L (21.0-32.0); CREATININE 1.2 mg/dL (0.70-1.30); Calcium 9.9 mg/dL (8.5-10.1); Chloride 104 mmol/L (98-107); Estimated GFR 63.46 (mL/min/1.73m2); Glucose 99 mg/dL (74-106); Sodium 142 mmol/L (136-145)
== END 2024-01-09 13:15 | disposition home or self-care (01) ==
LOC: NCHCN 13:14
PROVIDERS: PCP Internal Medicine; Visit Provider Internal Medicine
DX: I10 Essential (primary) hypertension (principal)
CPT/HCPCS: 80048

== ENCOUNTER 2025-01-14 15:09 | Outpatient (REF) | payer MEDICARE, BC, SELFPAY ==
[2025-01-14 20:43] LABS: Cholesterol 199 mg/dL (<200); HDL Cholesterol 51 mg/dL (>40)
[2025-01-14 21:20] LABS: Vitamin B12 1150 pg/mL (211-911)
== END 2025-01-14 15:10 | disposition home or self-care (01) ==
LOC: NCHCN 15:09
PROVIDERS: PCP Internal Medicine; Visit Provider Nurse Practitioner
DX: Z13.220 Encounter for screening for lipoid disorders (principal)
CPT/HCPCS: 80061; 82607